=== PATIENT | female | born 1980 | race African-American/Black ===

== ENCOUNTER 2017-05-27 14:52 | Emergency (ER) | payer SELFPAY ==
--- NOTE | 2017-05-27 15:14 | EDM.PDOC ---
[id number] IRREGULAR HEARTBEAT Time Seen by Provider: 05/27/17 14:59 Source of Information: Reports: Patient History Limitations: Reports: No Limitations - History of Present Illness INITIAL COMMENTS - FREE TEXT/NARRATIVE: History of present illness: []Patient's had dental pain for 5 days and went to the dentist this morning he was unable to see her in the office. She also notes that 3 days ago she started having "slowing" of her pulse felt like palpitations. On questioning she denies palpitations being irregular or fast. Patient states that she has had blood transfusions in the past for a low hemoglobin and feels the same now. She states she has not had her blood checked a long time and does not follow up with a primary care doctor. Patient states since her last transfusion she has been doing well until early this year when her menses became irregular again. He can have up to 3 menses in one month. She denies any dizziness, lightheadedness, shortness of breath or chest pain Review of systems: As per history of present illness and below otherwise all systems reviewed and negative. Past medical history: As per history of present illness and as reviewed below otherwise noncontributory. Surgical history: As per history of present illness and as reviewed below otherwise noncontributory. Social history: No reported history of drug or alcohol abuse. Family history: As per history of present illness and as reviewed below otherwise noncontributory. Physical exam: General: Well developed, well nourished in NAD HEENT: Atraumatic, normocephalic, pupils reactive, negative for conjunctival pallor or scleral icterus, mucous membranes moist, throat clear, neck supple, nontender, trachea midline. Lungs: Clear to auscultation, breath sounds equal bilaterally, chest nontender. Heart: S1S2, regular, negative for clicks, rubs, or JVD. Abdomen: Soft, nondistended, nontender. Negative for masses or hepatosplenomegaly. Negative for costovertebral tenderness. Pelvis: Stable nontender. Genitourinary: Deferred. Rectal: Deferred. Extremities: Atraumatic, negative for cords or calf pain. Neurovascular unremarkable. Neuro: Awake, alert, oriented. Cranial nerves II through XII unremarkable. Cerebellum unremarkable. Motor and sensory unremarkable throughout. Exam nonfocal. Diagnostics: []CBC chemistry checked showing anemia Therapeutics: []Dr. Aguilar was notified as he was in the ED seeing another patient and he see her in clinic. Impression: []Dental pain, iron deficiency anemia hemoglobin of 7.3 Plan: []Take iron supplements daily, follow-up with Dr. Aguilar Definitive disposition and diagnosis as appropriate pending reevaluation and review of above. Teeth Pain Score (Numeric/FACES): 9 - Related Data Allergies Allergy/AdvReac Type Severity Reaction Status Date / Time No Known Allergies Allergy Verified 05/27/17 14:55 Home Meds: Home Meds . [No Known Home Meds] 05/27/17 [History] Past Medical History - Past Health History Medical/Surgical History: Denies Medical/Surgical History Cardiovascular History: Reports: None Respiratory History: Reports: None Gastrointestinal History: Reports: None Genitourinary History: Reports: None HEALTH CARE COORDINATOR History: Reports: None Musculoskeletal History: Reports: None Neurological History: Reports: None Psychiatric History: Reports: None Endocrine/Metabolic History: Reports: None Hematologic History: Reports: None Immunologic History: Reports: None Oncologic (Cancer) History: Reports: None Dermatologic History: Reports: None - Infectious Disease History Infectious Disease History: Reports: None - Past Surgical History Head Surgeries/Procedures: Reports: None Respiratory Surgical History: Reports: None GI Surgical History: Reports: None Female Surgical History: Reports: None Social & Family History - Tobacco Use Smoking Status *Q: Never Smoker Second Hand Smoke Exposure: No - Caffeine Use Caffeine Use: Reports: None - Alcohol Use Days Per Week of Alcohol Use: 0 - Recreational Drug Use Recreational Drug Use: No ED ROS GENERAL - Review of Systems Review Of Systems: See Below (See history of present illness) ED EXAM, GENERAL - Physical Exam Exam: See Below (See history of present illness) Course - Vital Signs Last Recorded V/S: Last Vital Signs Temp 36.4 C 05/27/17 14:59 Pulse 89 05/27/17 14:59 Resp 12 05/27/17 14:59 BP 117/71 05/27/17 14:59 Pulse Ox 98 05/27/17 14:59 - Orders/Labs/Meds Orders: Active Orders 24 hr Category Date Time Status TYPE AND SCREEN [BBK] Stat Lab 05/27/17 15:34 Received Labs: Laboratory Tests 08/14/17 08/14/17 Range/Units 15:34 15:34 WBC 6.95 (4.0-11.0) K/uL RBC 4.56 (4.30-5.90) M/uL Hgb 7.3 L (12.0-16.0) g/dL Hct 26.4 L (36.0-46.0) % MCV 57.9 L (80.0-98.0) fL MCH 16.0 L (27.0-32.0) pg MCHC 27.7 L (31.0-37.0) g/dL RDW Std Deviation 45.4 (28.0-62.0) fl RDW Coeff of Román 22 H (11.0-15.0) % Plt Count 388 (150-400) K/uL MPV 9.10 (7.40-12.00) fL Neut % (Auto) 61.2 (48.0-80.0) % Lymph % (Auto) 27.6 (16.0-40.0) % [place] % (Auto) 8.9 (0.0-15.0) % Eos % (Auto) 1.0 (0.0-7.0) % Baso % (Auto) 1.3 (0.0-1.5) % Neut # (Auto) 4.3 (1.4-5.7) K/uL Lymph # (Auto) 1.9 (0.6-2.4) K/uL [place] # (Auto) 0.6 (0.0-0.8) K/uL Eos # (Auto) 0.1 (0.0-0.7) K/uL Baso # (Auto) 0.1 (0.0-0.1) K/uL Nucleated RBC % 0.0 /100WBC Nucleated RBCs # 0 K/uL Sodium 138 (136-146) mmol/L Potassium 4.0 (3.5-5.1) mmol/L Chloride 108 (98-110) mmol/L Carbon Dioxide 24 (21-31) mmol/L BUN 10 (6.0-23.0) mg/dL Creatinine 0.7 (0.6-1.5) mg/dL Est Cr Clr Drug Dosing 108.04 mL/min Estimated GFR (MDRD) > 60.0 ml/min Glucose 86 (60-110) mg/dL Calcium 8.9 (8.8-10.8) mg/dL Meds: Medications Discontinued Medications Generic Name Dose Route Start Last Admin Trade Name Manuel PRN Reason Stop Dose Admin Benzocaine 2 each 05/27/17 16:21 05/27/17 16:31 Hurricaine One 20% MUCMEM 05/27/17 16:22 2 each ONETIME ONE Administration Lidocaine HCl 15 ml 05/27/17 16:21 05/27/17 16:31 Xylocaine 2% Viscous PO 05/27/17 16:22 15 ml ONETIME ONE Administration Departure - Departure Time of Disposition: 16:31 Disposition: Home, Self-Care 01 Condition: Good Clinical Impression: Pain, dental Iron deficiency anemia Qualifiers: Iron deficiency anemia type: chronic blood loss Qualified Code(s): D50.0 - Iron deficiency anemia secondary to blood loss (chronic) - Discharge Information Instructions: Dental Caries, [id number] Referrals: PCP,None [Primary Care Provider] - Forms: ED Department Discharge Additional Instructions: The following information is given to patients seen in the emergency department who are being discharged to home. This information is to outline your options for follow-up care. We provide all patients seen in our emergency department with a follow-up referral. The need for follow-up, as well as the timing and circumstances, are variable depending upon the specifics of your emergency department visit. If you don't have a primary care physician on staff, we will provide you with a referral. We always advise you to contact your personal physician following an emergency department visit to inform them of the circumstance of the visit and for follow-up with them and/or the need for any referrals to a consulting specialist. The emergency department will also refer you to a specialist when appropriate. This referral assures that you have the opportunity for follow-up care with a specialist. All of these measure are taken in an effort to provide you with optimal care, which includes your follow-up. Under all circumstances we always encourage you to contact your private physician who remains a resource for coordinating your care. When calling for follow-up care, please make the office aware that this follow-up is from your recent emergency room visit. If for any reason you are refused follow-up, please contact the [facility] Emergency Department at and asked to speak to the emergency department charge nurse. Take iron supplements daily. Follow-up with HEALTH CARE COORDINATOR [facility] [address] [place] [id number] - My Orders Last 24 Hours: My Active Orders 05/27/17 15:34 TYPE AND SCREEN [BBK] Stat - Assessment/Plan Last 24 Hours: My Active Orders 05/27/17 15:34 TYPE AND SCREEN [BBK] Stat
[2017-05-27 16:07] LABS: CHLORIDE,CL 108 mmol/L (98-110); SODIUM,NA 138 mmol/L (136-146)
[2017-05-27] MEDS ORDERED: Benzocaine 20% Topical Spray UD MUCMEM ONE (16:21)
[2017-05-27] MEDS ORDERED: Lidocaine 2% Viscous Solution 15 ML Cup PO ONE (16:21)
[2017-05-27 18:37] VITALS: BP 110/72
== END 2017-05-27 16:39 | disposition home or self-care (01) ==
LOC: MW.ED 14:52
DX: D50.0 Iron deficiency anemia secondary to blood loss (chronic) (principal); K08.89 Other specified disorders of teeth and supporting structures
CPT/HCPCS: 36415; 80048; 85025; 86850; 86900; 86901; 99283; A9270

== ENCOUNTER 2018-02-07 13:49 | Observation (INO) | payer SELFPAY ==
[2018-02-07] MEDS ORDERED: Sodium Chloride 0.9% 10 ML Syringe FLUSH PRN ×2 (13:57→15:19)
[2018-02-07] MEDS ORDERED: Sodium Chloride 0.9% 2.5 ML Syringe FLUSH PRN ×2 (13:57→15:19)
--- NOTE | 2018-02-07 14:05 | EDM.PDOC ---
ED HPI GENERAL MEDICAL PROBLEM - General Chief Complaint: Chest Pain Stated Complaint: CHEST PAIN Time Seen by Provider: 02/07/18 14:01 Source of Information: Reports: Patient History Limitations: Reports: No Limitations - History of Present Illness INITIAL COMMENTS - FREE TEXT/NARRATIVE: HISTORY AND PHYSICAL: [] 37-year-old female presenting with chest pain Pain started in her back and has wrapped around to the anterior chest History of Present Illness: []Patient is doing well now pain has been present for at least 4 hours History 8 months ago with dysfunctional bleeding or palpitations no longer having any uterine bleeding problems. Patient was advised to see Dr. Aguilar for follow-up and did not follow up in the clinic Denies being Since last period was one month ago and was normal Patient denies having any blood in her stool or abnormal stools no black or tarry stools have been noted Review of Systems: As per history of present illness and below otherwise all systems reviewed and negative. Past medical history: As per history of present illness and as reviewed below otherwise noncontributory. Surgical history: As per history of present illness and as reviewed below otherwise noncontributory. Social history: No reported history of drug or alcohol abuse. Family history: As per history of present illness and as reviewed below otherwise noncontributory. Physical exam: Alert and oriented female answering questions appropriately in full sentences without shortness of breath. Skin is warm and dry intact. HEENT: Atraumatic, normocehpalic, pupils reactive, negative for conjunctival pallor or scleral icterus, mucous membranes moist, throat clear, neck supple, nontender, trachea midline. Pitosis of rightupper lid. Lungs: Clear to auscultation, breath sounds equal bilaterally, chest non tender. Heart: S1S2, regular, negative for clicks, rubs, or JVD. Abdomen: Soft, nondistended, tender on palpation right upper quadrant, patient grabbing my hand and pulling it away. Negative for masses or hepatossplenmegaly. Negative for costovertebral tenderness. Pelvis: Stable nontender. Genitourinary: Deferred. Rectal: Deferred Extremities: Atraumatic, negative for cords or calf pain. Neurovascular unremarkable. Neuro: Awake, alert, oriented. Cranial nerves II through XII unremarkable. Cerebellum unremarkable. Motor and sensory unremarkable throughout. Exam nonfocal. orthostatic measure showed laying pressure of 145/67 with heart rate of 81 when sitting blood pressure dropped to 124/58 with a heart rate of 88. Patient complained of chest pain when sitting up. negligible changes noted when sitting to standing. Hemoccult was negative. History patient with Dr. Negrete who is agreeable for observation on telemetry Diagnostics: []CBC CMP UA amylase lipase H. pylori troponin EKG chest x-ray Orthostatic blood pressures, no cold Therapeutics: []iv saline Impression: []Symptomatic anemia Heart palpitations Intermittent chest pain Plan: []observation with telemetry Definitive disposition and diagnosis as appropriate pending reevaluation and review of above. Onset: Today, Sudden Duration: Hour(s): (4-5) Location: Reports: Chest, Back Quality: Reports: Ache Severity: Moderate Improves with: Reports: None Worsens with: Reports: None Associated Symptoms: Reports: Chest Pain, Other (palpitations intermittently) Upper Mid-Sternal Back Pain Score (Numeric/FACES): 9 - Related Data Allergies Allergy/AdvReac Type Severity Reaction Status Date / Time No Known Allergies Allergy Verified 02/07/18 13:57 Home Meds: Home Meds . [No Known Home Meds] 05/27/17 [History] Past Medical History - Past Health History Medical/Surgical History: Denies Medical/Surgical History Cardiovascular History: Reports: None Respiratory History: Reports: None Gastrointestinal History: Reports: None Genitourinary History: Reports: None STARCH DUMPER History: Reports: None Musculoskeletal History: Reports: None Neurological History: Reports: None Psychiatric History: Reports: None Endocrine/Metabolic History: Reports: None Hematologic History: Reports: None Immunologic History: Reports: None Oncologic (Cancer) History: Reports: None Dermatologic History: Reports: None - Infectious Disease History Infectious Disease History: Reports: Chicken Pox - Past Surgical History Head Surgeries/Procedures: Reports: None Respiratory Surgical History: Reports: None GI Surgical History: Reports: None Female Surgical History: Reports: None Social & Family History - Family History Family Medical History: Noncontributory - Tobacco Use Smoking Status *Q: Never Smoker Second Hand Smoke Exposure: No - Caffeine Use Caffeine Use: Reports: None - Alcohol Use Days Per Week of Alcohol Use: 0 - Recreational Drug Use Recreational Drug Use: No ED ROS GENERAL - Review of Systems Review Of Systems: ROS reveals no pertinent complaints other than HPI. ED EXAM, GENERAL - Physical Exam Exam: See Below (see dictation) EKG INTERPRETATION EKG Date: 02/07/18 Rhythm: NSR Comparison: No Change (2015) Course - Vital Signs Last Recorded V/S: Last Vital Signs Temp 36.7 C 02/07/18 13:54 Pulse 80 02/07/18 16:30 Resp 16 02/07/18 16:30 BP 109/49 L 02/07/18 16:30 Pulse Ox 100 02/07/18 16:30 Orthostatic Blood Pressure [ 122/69 Standing] Orthostatic Blood Pressure [ 124/58 Sitting] Orthostatic Blood Pressure [ 145/67 Supine] - Orders/Labs/Meds Orders: Active Orders 24 hr Category Date Time Status EKG Documentation Completion [RC] STAT Care 02/07/18 13:57 Active Hemoccult [Fecal Occult Blood Collection] [RC] Care 02/07/18 15:47 Active ASDIRECTED Orthostatic Vital Signs [RC] ASDIRECTED Care 02/07/18 14:55 Active CULTURE URINE [RM] Stat Lab 02/07/18 14:10 Received Hemoccult [OCCULT BLOOD DIAGNOSTIC] [OP] Stat Lab 02/07/18 14:55 Ordered UA W/MICROSCOPIC [URIN] Stat Lab 02/07/18 13:57 Ordered Sodium Chloride 0.9% [Saline Flush] Med 02/07/18 13:57 Active 10 ml FLUSH ASDIRECTED PRN Sodium Chloride 0.9% [Saline Flush] Med 02/07/18 15:19 Active 10 ml FLUSH ASDIRECTED PRN Sodium Chloride 0.9% [Saline Flush] Med 02/07/18 13:57 Active 2.5 ml FLUSH ASDIRECTED PRN Sodium Chloride 0.9% [Saline Flush] Med 02/07/18 15:19 Active 2.5 ml FLUSH ASDIRECTED PRN Saline Lock Insert [OM.PC] Stat Oth 02/07/18 13:57 Ordered Saline Lock Insert [OM.PC] Stat Ot 02/07/18 15:19 Ordered Medication Orders Sodium Chloride (Saline Flush) 10 ml FLUSH ASDIRECTED PRN PRN Reason: Keep Vein Open Sodium Chloride (Saline Flush) 2.5 ml FLUSH ASDIRECTED PRN PRN Reason: Keep Vein Open Sodium Chloride (Saline Flush) 10 ml FLUSH ASDIRECTED PRN PRN Reason: Keep Vein Open Sodium Chloride (Saline Flush) 2.5 ml FLUSH ASDIRECTED PRN PRN Reason: Keep Vein Open Labs: Laboratory Tests 02/07/18 02/07/18 02/07/18 Range/Units 14:10 14:10 14:10 WBC 9.29 (4.0-11.0) K/uL RBC 4.37 (4.30-5.90) M/uL Hgb 6.7 L (12.0-16.0) g/dL Hct 24.4 L (36.0-46.0) % MCV 55.8 L (80.0-98.0) fL MCH 15.3 L (27.0-32.0) pg MCHC 27.5 L (31.0-37.0) g/dL RDW Std Deviation 43.8 (28.0-62.0) fl RDW Coeff of Román 22 H (11.0-15.0) % Plt Count 401 H (150-400) K/uL Neut % (Auto) 68.3 (48.0-80.0) % Lymph % (Auto) 23.5 (16.0-40.0) % [place] % (Auto) 6.8 (0.0-15.0) % Eos % (Auto) 0.6 (0.0-7.0) % Baso % (Auto) 0.8 (0.0-1.5) % Neut # (Auto) 6.4 H (1.4-5.7) K/uL Lymph # (Auto) 2.2 (0.6-2.4) K/uL [place] # (Auto) 0.6 (0.0-0.8) K/uL Eos # (Auto) 0.1 (0.0-0.7) K/uL Baso # (Auto) 0.1 (0.0-0.1) K/uL Nucleated RBC % 0.0 /100WBC Nucleated RBCs # 0 K/uL Sodium 139 (136-145) mmol/L Potassium 3.9 (3.5-5.1) mmol/L Chloride 107 (98-107) mmol/L Carbon Dioxide 23.0 (21.0-32.0) mmol/L BUN 9 (7.0-18.0) mg/dL Creatinine 0.6 (0.6-1.0) mg/dL Est Cr Clr Drug Dosing 138.82 mL/min Estimated GFR (MDRD) > 60.0 ml/min Glucose 94 (74-106) mg/dL Calcium 9.0 (8.5-10.1) mg/dL Total Bilirubin 0.3 (0.2-1.0) mg/dL AST 10 L (15-37) IU/L ALT 11 L (14-63) IU/L Alkaline Phosphatase 97 (46-116) U/L Troponin I < 0.050 (0.000-0.056) ng/mL Total Protein 7.5 (6.4-8.2) g/dL Albumin 3.5 (3.4-5.0) g/dL Globulin 4.0 H (2.0-3.5) g/dL Albumin/Globulin Ratio 0.9 L (1.3-2.8) Amylase 52 (25-115) U/L Lipase 98 (73-393) U/L HCG, Quant < 1.0 mIU/mL H. pylori IgG Antibody POSITIVE H (NEG) Blood Type Antibody Screen 02/07/18 Range/Units 15:31 WBC (4.0-11.0) K/uL RBC (4.30-5.90) M/uL Hgb (12.0-16.0) g/dL Hct (36.0-46.0) % MCV (80.0-98.0) fL MCH (27.0-32.0) pg MCHC (31.0-37.0) g/dL RDW Std Deviation (28.0-62.0) fl RDW Coeff of Román (11.0-15.0) % Plt Count (150-400) K/uL Neut % (Auto) (48.0-80.0) % Lymph % (Auto) (16.0-40.0) % [place] % (Auto) (0.0-15.0) % Eos % (Auto) (0.0-7.0) % Baso % (Auto) (0.0-1.5) % Neut # (Auto) (1.4-5.7) K/uL Lymph # (Auto) (0.6-2.4) K/uL [place] # (Auto) (0.0-0.8) K/uL Eos # (Auto) (0.0-0.7) K/uL Baso # (Auto) (0.0-0.1) K/uL Nucleated RBC % /100WBC Nucleated RBCs # K/uL Sodium (136-145) mmol/L Potassium (3.5-5.1) mmol/L Chloride (98-107) mmol/L Carbon Dioxide (21.0-32.0) mmol/L BUN (7.0-18.0) mg/dL Creatinine (0.6-1.0) mg/dL Est Cr Clr Drug Dosing mL/min Estimated GFR (MDRD) ml/min Glucose (74-106) mg/dL Calcium (8.5-10.1) mg/dL Total Bilirubin (0.2-1.0) mg/dL AST (15-37) IU/L ALT (14-63) IU/L Alkaline Phosphatase (46-116) U/L Troponin I (0.000-0.056) ng/mL Total Protein (6.4-8.2) g/dL Albumin (3.4-5.0) g/dL Globulin (2.0-3.5) g/dL Albumin/Globulin Ratio (1.3-2.8) Amylase (25-115) U/L Lipase (73-393) U/L HCG, Quant mIU/mL H. pylori IgG Antibody (NEG) Blood Type O POSITIVE Antibody Screen NEGATIVE Meds: Medications Generic Name Dose Route Start Last Admin Trade Name Freq PRN Reason Stop Dose Admin Sodium Chloride 10 ml 02/07/18 13:57 Saline Flush FLUSH ASDIRECTED PRN Keep Vein Open Sodium Chloride 2.5 ml 02/07/18 13:57 Saline Flush FLUSH ASDIRECTED PRN Keep Vein Open Sodium Chloride 10 ml 02/07/18 15:19 Saline Flush FLUSH ASDIRECTED PRN Keep Vein Open Sodium Chloride 2.5 ml 02/07/18 15:19 Saline Flush FLUSH ASDIRECTED PRN Keep Vein Open Discontinued Medications Generic Name Dose Route Start Last Admin Trade Name Freq PRN Reason Stop Dose Admin Sodium Chloride 1,000 mls @ 999 mls/hr 02/07/18 15:19 02/07/18 15:59 Normal Saline IV 02/07/18 16:19 999 mls/hr STAT ONE Administration Pantoprazole Sodium 80 mg 02/07/18 15:19 02/07/18 16:01 Protonix Iv IVPUSH 02/07/18 15:20 80 mg .BOLUS ONE Administration Departure - Departure Time of Disposition: 16:53 Disposition: Refer to Observation Condition: Good Clinical Impression: Anemia Qualifiers: Anemia type: unspecified type Qualified Code(s): D64.9 - Anemia, unspecified Instructions: Anemia, Nonspecific Chest Pain, [id number] Referrals: PCP,None [Primary Care Provider] - Forms: ED Department Discharge - My Orders Last 24 Hours: My Active Orders 02/07/18 13:57 EKG Documentation Completion [RC] STAT UA W/MICROSCOPIC [URIN] Stat Sodium Chloride 0.9% [Saline Flush] 10 ml FLUSH ASDIRECTED PRN Sodium Chloride 0.9% [Saline Flush] 2.5 ml FLUSH ASDIRECTED PRN Saline Lock Insert [OM.PC] Stat 02/07/18 14:10 CULTURE URINE [RM] Stat 02/07/18 14:55 Hemoccult [OCCULT BLOOD DIAGNOSTIC] [OP] Stat 02/07/18 15:19 Sodium Chloride 0.9% [Saline Flush] 10 ml FLUSH ASDIRECTED PRN Sodium Chloride 0.9% [Saline Flush] 2.5 ml FLUSH ASDIRECTED PRN Saline Lock Insert [OM.PC] Stat 02/07/18 15:47 Hemoccult [Fecal Occult Blood Collection] [RC] ASDIRECTED - Assessment/Plan Last 24 Hours: My Active Orders 02/07/18 13:57 EKG Documentation Completion [RC] STAT UA W/MICROSCOPIC [URIN] Stat Sodium Chloride 0.9% [Saline Flush] 10 ml FLUSH ASDIRECTED PRN Sodium Chloride 0.9% [Saline Flush] 2.5 ml FLUSH ASDIRECTED PRN Saline Lock Insert [OM.PC] Stat 02/07/18 14:10 CULTURE URINE [RM] Stat 02/07/18 14:55 Hemoccult [OCCULT BLOOD DIAGNOSTIC] [OP] Stat 02/07/18 15:19 Sodium Chloride 0.9% [Saline Flush] 10 ml FLUSH ASDIRECTED PRN Sodium Chloride 0.9% [Saline Flush] 2.5 ml FLUSH ASDIRECTED PRN Saline Lock Insert [OM.PC] Stat 02/07/18 15:47 Hemoccult [Fecal Occult Blood Collection] [RC] ASDIRECTED
--- NOTE | 2018-02-07 14:42 | CR ---
EXAMINATION: Portable chest radiograph. HISTORY: Chest pain. FINDINGS: The trachea is midline. The cardiomediastinal silhouette is within normal limits. No pulmonary infilt rates, effusions or pneumothorax. Osseous structures appear unremarkable. IMPRESSION: No acute cardiopulmonary process.
[2018-02-07 14:55] LABS: CHLORIDE,CL 107 mmol/L (98-107); SODIUM,NA 139 mmol/L (136-145)
[2018-02-07] MEDS ORDERED: Pantoprazole 40 MG Vial IVPUSH ONE (15:19)
[2018-02-07] MEDS ORDERED: Sodium Chloride 0.9% 1,000 ML IV ONE (15:19)
[2018-02-07] MEDS ORDERED: Albuterol/Ipratropium 3.0-0.5 MG/3 ML Neb Soln NEB PRN (17:36)
[2018-02-07] MEDS ORDERED: Ondansetron 4 MG/2 ML SDV IVPUSH PRN (17:36)
--- NOTE | 2018-02-07 17:51 | PCM.HP ---
H&P History of Present Illness - General Date of Service: 02/07/18 Admit Problem/Dx: Admission Diagnosis/Problem Admission Diagnosis/Problem Anemia Source of Information: Patient History Limitations: Reports: No Limitations - History of Present Illness Initial Comments - Free Text/Narative: 37-year-old female is being admitted with symptomatic anemia and chest pain. Patient presented to the ER today after the onset of chest pain that began in the back and wrapped around to the front of the chest. Pain was located substernal and in the epigastric area. Patient has no cardiac history. There is no family history of cardiac disease. Patient denies any diaphoresis, nausea, vomiting with the onset of chest pain. While in the ER she was found to have a hemoglobin of 6.7. She notes that she has had blood transfusions in the past for iron deficiency anemia. She has been seen in the past in our ER for dysfunctional bleeding and was told to follow-up with the [facility] but she never did. She denies . She denies any bloody stools, bloody urine or gastric ulcers. Her last menstrual period was one month ago and was normal. Patient is a poor historian but in reviewing her past records, she had a pelvic ultrasound done in 2014 which showed a right-sided hemorrhagic cyst of the ovary. She never followed up after this finding. She is also told his issues in the ER in the past that she can have up to 3 periods in one month. While visiting with the patient in the ER she states that she feels much better since presenting and currently denies any chest pain, palpitations, shortness of breath, wheezing, cough, abdominal pain, nausea, vomiting, constipation, diarrhea, dysuria, hematuria, peripheral edema, numbness/tingling/weakness in the upper and lower extremity bilaterally, fever. ER course: CBC showed a normal white blood cell count but a hemoglobin of 6.7. Platelets were elevated at 401. CMP was unremarkable as well as the initial troponin. Amylase and lipase were unremarkable. H. pylori was positive. EKG showed normal sinus rhythm and was consistent with prior EKGs done in the ER in past. She was given IV Protonix and IV fluid bolus. Her blood pressure at the time that I saw her was 109/49. Orthostatic vital signs do show orthostatic hypotension. Upper Mid-Sternal Back Pain Score (Numeric/FACES): 9 - Related Data Allergies/Adverse Reactions: Allergies Allergy/AdvReac Type Severity Reaction Status Date / Time No Known Allergies Allergy Verified 02/07/18 13:57 Home Medications: Home Meds . [No Known Home Meds] 05/27/17 [History] Past Medical History - Past Health History Medical/Surgical History: Denies Medical/Surgical History Cardiovascular History: Reports: None Respiratory History: Reports: None Gastrointestinal History: Reports: None Genitourinary History: Reports: None [facility] History: Reports: None Musculoskeletal History: Reports: None Neurological History: Reports: None Psychiatric History: Reports: None Endocrine/Metabolic History: Reports: None Hematologic History: Reports: None Immunologic History: Reports: None Oncologic (Cancer) History: Reports: None Dermatologic History: Reports: None - Infectious Disease History Infectious Disease History: Reports: Chicken Pox - Past Surgical History Head Surgeries/Procedures: Reports: None Respiratory Surgical History: Reports: None GI Surgical History: Reports: None Female Surgical History: Reports: None Social & Family History - Family History Family Medical History: Noncontributory - Tobacco Use Smoking Status *Q: Never Smoker Second Hand Smoke Exposure: No - Caffeine Use Caffeine Use: Reports: None - Alcohol Use Days Per Week of Alcohol Use: 0 - Recreational Drug Use Recreational Drug Use: No H&P Review of Systems - Review of Systems: Review Of Systems: See Below General: Reports: No Symptoms HEENT: Reports: No Symptoms Pulmonary: Reports: No Symptoms Cardiovascular: Reports: Chest Pain, Palpitations Gastrointestinal: Reports: No Symptoms Genitourinary: Reports: No Symptoms Musculoskeletal: Reports: No Symptoms Skin: Reports: No Symptoms Psychiatric: Reports: No Symptoms Neurological: Reports: No Symptoms Hematologic/Lymphatic: Reports: Anemia Immunologic: Reports: No Symptoms Exam - Exam Exam: See Below - Vital Signs Vital Signs: Last Vital Signs Temp 98.0 F 02/07/18 13:54 Pulse 78 02/07/18 17:38 Resp 18 02/07/18 17:38 BP 129/67 02/07/18 17:38 Pulse Ox 100 02/07/18 17:38 Orthostatic Blood Pressure [ 122/69 Standing] Orthostatic Blood Pressure [ 124/58 Sitting] Orthostatic Blood Pressure [ 145/67 Supine] Weight: 185 lb 3.013 oz - Exam General: Alert, Oriented, Cooperative HEENT: Conjunctiva Clear, EOMI, Hearing Intact, Mucosa Moist & [place], Posterior Pharynx Clear, TMs Clear Neck: Supple, Trachea Midline, 2 Lungs: Clear to Auscultation, Normal Respiratory Effort Cardiovascular: Regular Rate, Regular Rhythm GI/Abdominal Exam: Normal Bowel Sounds, Soft, Non-Tender, No Organomegaly, No Distention, No Abnormal Bruit, No Mass, Pelvis Stable Back Exam: Normal Inspection, Full Range of Motion, NT Extremities: Normal Inspection, Normal Range of Motion, Non-Tender, No Pedal Edema, Normal Capillary Refill Peripheral Pulses: 2+: Radial (L), Radial (R), Posterior Tibial (L), Posterior Tibial (R) Skin: Warm, Dry, Intact Neuro Extensive - Mental Status: Alert, Oriented x3, Normal Mood/Affect, Normal Cognition Psychiatric: Alert, Normal Affect, Normal Mood - Patient Data Lab Results Last 24 hrs: Laboratory Results - last 24 hr 02/07/18 02/07/18 02/07/18 Range/Units 14:10 14:10 14:10 WBC 9.29 (4.0-11.0) K/uL RBC 4.37 (4.30-5.90) M/uL Hgb 6.7 L (12.0-16.0) g/dL Hct 24.4 L (36.0-46.0) % MCV 55.8 L (80.0-98.0) fL MCH 15.3 L (27.0-32.0) pg MCHC 27.5 L (31.0-37.0) g/dL RDW Std Deviation 43.8 (28.0-62.0) fl RDW Coeff of Román 22 H (11.0-15.0) % Plt Count 401 H (150-400) K/uL Neut % (Auto) 68.3 (48.0-80.0) % Lymph % (Auto) 23.5 (16.0-40.0) % [place] % (Auto) 6.8 (0.0-15.0) % Eos % (Auto) 0.6 (0.0-7.0) % Baso % (Auto) 0.8 (0.0-1.5) % Neut # (Auto) 6.4 H (1.4-5.7) K/uL Lymph # (Auto) 2.2 (0.6-2.4) K/uL [place] # (Auto) 0.6 (0.0-0.8) K/uL Eos # (Auto) 0.1 (0.0-0.7) K/uL Baso # (Auto) 0.1 (0.0-0.1) K/uL Nucleated RBC % 0.0 /100WBC Nucleated RBCs # 0 K/uL Sodium 139 (136-145) mmol/L Potassium 3.9 (3.5-5.1) mmol/L Chloride 107 (98-107) mmol/L Carbon Dioxide 23.0 (21.0-32.0) mmol/L BUN 9 (7.0-18.0) mg/dL Creatinine 0.6 (0.6-1.0) mg/dL Est Cr Clr Drug Dosing 138.82 mL/min Estimated GFR (MDRD) > 60.0 ml/min Glucose 94 (74-106) mg/dL Calcium 9.0 (8.5-10.1) mg/dL Total Bilirubin 0.3 (0.2-1.0) mg/dL AST 10 L (15-37) IU/L ALT 11 L (14-63) IU/L Alkaline Phosphatase 97 (46-116) U/L Troponin I < 0.050 (0.000-0.056) ng/mL Total Protein 7.5 (6.4-8.2) g/dL Albumin 3.5 (3.4-5.0) g/dL Globulin 4.0 H (2.0-3.5) g/dL Albumin/Globulin Ratio 0.9 L (1.3-2.8) Amylase 52 (25-115) U/L Lipase 98 (73-393) U/L HCG, Quant < 1.0 mIU/mL H. pylori IgG Antibody POSITIVE H (NEG) Blood Type Antibody Screen Crossmatch 02/07/18 Range/Units 15:31 WBC (4.0-11.0) K/uL RBC (4.30-5.90) M/uL Hgb (12.0-16.0) g/dL Hct (36.0-46.0) % MCV (80.0-98.0) fL MCH (27.0-32.0) pg MCHC (31.0-37.0) g/dL RDW Std Deviation (28.0-62.0) fl RDW Coeff of Román (11.0-15.0) % Plt Count (150-400) K/uL Neut % (Auto) (48.0-80.0) % Lymph % (Auto) (16.0-40.0) % [place] % (Auto) (0.0-15.0) % Eos % (Auto) (0.0-7.0) % Baso % (Auto) (0.0-1.5) % Neut # (Auto) (1.4-5.7) K/uL Lymph # (Auto) (0.6-2.4) K/uL [place] # (Auto) (0.0-0.8) K/uL Eos # (Auto) (0.0-0.7) K/uL Baso # (Auto) (0.0-0.1) K/uL Nucleated RBC % /100WBC Nucleated RBCs # K/uL Sodium (136-145) mmol/L Potassium (3.5-5.1) mmol/L Chloride (98-107) mmol/L Carbon Dioxide (21.0-32.0) mmol/L BUN (7.0-18.0) mg/dL Creatinine (0.6-1.0) mg/dL Est Cr Clr Drug Dosing mL/min Estimated GFR (MDRD) ml/min Glucose (74-106) mg/dL Calcium (8.5-10.1) mg/dL Total Bilirubin (0.2-1.0) mg/dL AST (15-37) IU/L ALT (14-63) IU/L Alkaline Phosphatase (46-116) U/L Troponin I (0.000-0.056) ng/mL Total Protein (6.4-8.2) g/dL Albumin (3.4-5.0) g/dL Globulin (2.0-3.5) g/dL Albumin/Globulin Ratio (1.3-2.8) Amylase (25-115) U/L Lipase (73-393) U/L HCG, Quant mIU/mL H. pylori IgG Antibody (NEG) Blood Type O POSITIVE Antibody Screen NEGATIVE Crossmatch See Detail Result Diagrams: 02/07/18 14:10 02/07/18 14:10 - Problem List (1) Chest pain SNOMED Code(s): 47277790 ICD Code: R07.9 - CHEST PAIN, UNSPECIFIED Status: Acute Current Visit: Yes (2) H. pylori infection SNOMED Code(s): 786813957 ICD Code: A04.8 - OTHER SPECIFIED BACTERIAL INTESTINAL INFECTIONS Status: Acute Current Visit: Yes (3) Anemia SNOMED Code(s): 569533528 ICD Code: D64.9 - ANEMIA, UNSPECIFIED Status: Acute Current Visit: Yes Qualifiers: Anemia type: unspecified type Qualified Code(s): D64.9 - Anemia, unspecified Problem List Initiated/Reviewed/Updated: Yes Orders Last 24hrs: Active Orders 24 hr Category Date Time Status Patient Status [ADT] Stat ADT 02/07/18 16:51 Active Cardiac Monitoring [RC] . DIRECTED Care 02/07/18 17:41 Active Cardiac Monitoring [RC] CONTINUOUS Care 02/07/18 17:37 Active EKG Documentation Completion [RC] STAT Care 02/07/18 13:57 Active Height and Weight [RC] DAILY Care 02/07/18 17:36 Active Hemoccult [Fecal Occult Blood Collection] [RC] Care 02/07/18 15:47 Active ASDIRECTED Intake and Output [RC] QSHIFT Care 02/07/18 17:36 Active Notify Provider Vital Signs [RC] ASDIRECTED Care 02/07/18 17:37 Active Orthostatic Vital Signs [RC] ASDIRECTED Care 02/07/18 14:55 Active Oxygen Therapy [RC] PRN Care 02/07/18 17:36 Active Pulse Oximetry [RC] PRN Care 02/07/18 17:36 Active RT Aerosol Therapy [RC] ASDIRECTED Care 02/07/18 17:38 Active Up With Assistance [RC] ASDIRECTED Care 02/07/18 17:36 Active VTE/DVT Education [RC] PER UNIT ROUTINE Care 02/07/18 17:36 Active Vital Signs [RC] Q4H Care 02/07/18 17:36 Active BASIC METABOLIC PANEL,BMP [CHEM] AM Lab 02/08/18 05:11 Ordered CBC WITH AUTO DIFF [HEME] AM Lab 02/08/18 05:11 Ordered CULTURE URINE [RM] Stat Lab 02/07/18 17:11 Received FERRITIN [CHEM] Routine Lab 02/07/18 17:40 Ordered HEMOGLOBIN/HEMATOCRIT,HH [HEME] Routine Lab 02/07/18 17:45 Ordered Hemoccult [OCCULT BLOOD DIAGNOSTIC] [OP] Stat Lab 02/07/18 14:55 Ordered IRON/TIBC [CHEM] Routine Lab 02/07/18 17:40 Ordered MAGNESIUM [CHEM] Routine Lab 02/07/18 17:36 Ordered PHOSPHORUS [CHEM] Routine Lab 02/07/18 17:36 Ordered RED BLOOD CELLS LP [BBK] Routine Lab 02/07/18 15:31 Results TYPE AND SCREEN [BBK] Stat Lab 02/07/18 15:31 Results UA W/MICROSCOPIC [URIN] Stat Lab 02/07/18 17:11 Ordered Acetaminophen [Tylenol] Med 02/07/18 17:36 Active 650 mg PO Q4H PRN Albuterol/Ipratropium [DuoNeb 3.0-0.5 MG/3 ML] Med 02/07/18 17:36 Active 3 ml NEB Q4HRRT PRN Amoxicillin [Amoxil] Med 02/07/18 21:00 Active 1,000 mg PO Q12HR Clarithromycin [Biaxin] Med 02/07/18 17:45 Active 500 mg PO BID Ondansetron [Zofran] Med 02/07/18 17:36 Active 4 mg IVPUSH Q4H PRN Pantoprazole [ProTONIX] Med 02/07/18 17:43 Ordered 40 mg PO BIDAC Sodium Chloride 0.9% [Saline Flush] Med 02/07/18 13:57 Active 10 ml FLUSH ASDIRECTED PRN Sodium Chloride 0.9% [Saline Flush] Med 02/07/18 15:19 Active 10 ml FLUSH ASDIRECTED PRN Sodium Chloride 0.9% [Saline Flush] Med 02/07/18 13:57 Active 2.5 ml FLUSH ASDIRECTED PRN Sodium Chloride 0.9% [Saline Flush] Med 02/07/18 15:19 Active 2.5 ml FLUSH ASDIRECTED PRN Saline Lock Insert [OM.PC] Stat Oth 02/07/18 13:57 Ordered Saline Lock Insert [OM.PC] Stat Oth 02/07/18 15:19 Ordered Sequential Compression Device [OM.PC] Per Unit Routine Oth 02/07/18 17:37 Ordered Transfuse Red Blood Cells [COMM] Routine Oth 02/07/18 17:41 Ordered Resuscitation Status Routine Resus Stat 02/07/18 17:36 Ordered Medication Orders Acetaminophen (Tylenol) 650 mg PO Q4H PRN PRN Reason: Pain (Mild 1-3)/fever Albuterol/Ipratropium (Duoneb 3.0-0.5 Mg/3 Ml) 3 ml NEB Q4HRRT PRN PRN Reason: Shortness Of Breath/wheezing Amoxicillin (Amoxil) 1,000 mg PO Q12HR MAGGIE Clarithromycin (Biaxin) 500 mg PO BID MAGGIE Ondansetron HCl (Zofran) 4 mg IVPUSH Q4H PRN PRN Reason: Nausea Pantoprazole Sodium (Protonix) 40 mg PO BIDAC MAGGIE Sodium Chloride (Saline Flush) 10 ml FLUSH ASDIRECTED PRN PRN Reason: Keep Vein Open Sodium Chloride (Saline Flush) 2.5 ml FLUSH ASDIRECTED PRN PRN Reason: Keep Vein Open Sodium Chloride (Saline Flush) 10 ml FLUSH ASDIRECTED PRN PRN Reason: Keep Vein Open Sodium Chloride (Saline Flush) 2.5 ml FLUSH ASDIRECTED PRN PRN Reason: Keep Vein Open Assessment/Plan Comment:: 37-year-old female that is being admitted with symptomatic anemia and chest pain. #1. Symptomatic anemia: -Hemoglobin of 6.7 on admission. Patient will receive 2 units of packed red blood cells with an H&H being checked 1 hour after transfusion. Recheck CBC in the morning. -Iron studies are pending. -Hemoccult is pending. If positive we will consult surgery for possible endoscopy and colonoscopy. -We'll start the patient on daily iron tomorrow. #2. Chest pain with palpitations: -Patient will be put on telemetry. EKG was normal in the ER. -We will trend troponins -Magnesium and phosphorus are pending. #3. H. pylori infection: -This could be contributing to the patient's anemia. -Patient will be started on clarithromycin 500 mg by mouth twice a day, amoxicillin 1 g twice a day and Protonix 40 mg twice a day. #4. Orthostatic hypotension: -Hopefully this will improve as the patient received a blood transfusion. DVT prophylaxis: SCDs. Disposition: 1-2 days pending improvement.
[2018-02-07] MEDS: Pantoprazole 40 MG Tab.CR PO SCH (18:17)
[2018-02-07] MEDS: Acetaminophen 325 MG Tab PO PRN (19:39)
[2018-02-07] MEDS: Amoxicillin 500 MG Cap PO SCH (21:36)
[2018-02-08 06:38] LABS: CHLORIDE,CL 108 mmol/L (98-107); SODIUM,NA 139 mmol/L (136-145)
[2018-02-08] MEDS: Pantoprazole 40 MG Tab.CR PO SCH (08:00)
[2018-02-08 08:01] VITALS: BP 110/64
[2018-02-08] MEDS: Amoxicillin 500 MG Cap PO SCH (09:00)
[2018-02-08] MEDS: Acetaminophen 325 MG Tab PO PRN (09:07)
== END 2018-02-08 12:15 | disposition home or self-care (01) ==
LOC: MW.ED 13:49 → MW.MS 17:23
PROVIDERS: ADMIT Internal Medicine; ATTEND Internal Medicine
DX: D64.9 Anemia, unspecified (principal); R07.2 Precordial pain; A04.8 Other specified bacterial intestinal infections; I95.1 Orthostatic hypotension
CPT/HCPCS: 36415; 36430; 71045; 80048; 80053; 81001; 82150; 82272; 82728; 83550; 83690; 83735; 84100; 84484; 84702; 85025; 86677; 86850; 86900; 86901; 86920; 86921; 86922; 87086; 93005; 96361; 96374; 99285; A9270; C9113; J7040; P9016

== ENCOUNTER 2019-02-26 14:08 | Emergency (ER) | payer SELFPAY ==
--- NOTE | 2019-02-26 14:22 | EDM.PDOC ---
ED HPI GENERAL MEDICAL PROBLEM - General Chief Complaint: ARMATURE COIL WINDER Problem Stated Complaint: STOMACH PAIN Time Seen by Provider: 02/26/19 14:16 Source of Information: Reports: Patient History Limitations: Reports: No Limitations - History of Present Illness INITIAL COMMENTS - FREE TEXT/NARRATIVE: HISTORY AND PHYSICAL: History of present illness: Patient is a 38-year-old female who presents to the emergency room with complaints of left lower abdominal pain started last evening. She states that she did have some scant vaginal bleeding which started this morning. She believes she is , as she has been trying to conceive. Last menstrual period was December 2018, unsure definite date. Did take a positive test at home. 1, para 0. Patient denies any fever, chills, headache, change in vision, syncope or near syncope. Denies any chest pain, back pain, shortness of breath or cough. Denies any abdominal pain, nausea, vomiting, diarrhea, constipation or dysuria. Has not noted any blood in urine or stool. Patient has been eating and drinking appropriately. PMH: Iron deficiency anemia Review of systems: As per history of present illness and below otherwise all systems reviewed and negative. Past medical history: As per history of present illness and as reviewed below otherwise noncontributory. Surgical history: As per history of present illness and as reviewed below otherwise noncontributory. Social history: See social history for further information Family history: As per history of present illness and as reviewed below otherwise noncontributory. Physical exam: General: Well-developed and well-nourished 30 H her old female. Alert and oriented. Nontoxic appearing and in no acute distress. HEENT: Atraumatic, normocephalic, pupils equal and reactive bilaterally, negative for conjunctival pallor or scleral icterus, mucous membranes moist, TMs normal bilaterally, throat clear, neck supple, nontender, trachea midline. No drooling or trismus noted. No meningeal signs. No hot potato voice noted. Lungs: Clear to auscultation, breath sounds equal bilaterally, chest nontender. Heart: S1S2, regular rate and rhythm without overt murmur Abdomen: Soft, nondistended, nonspecific low abdominal tenderness. Negative for masses or hepatosplenomegaly. Negative for costovertebral tenderness. Pelvis: Stable nontender. Genitourinary: This was done with consent and a skein dyer at the bedside. External genitalia appears within normal limits. Cervical os is closed with no bleeding or discharge noted. Patient tolerated exam well. Bimanual was tolerated fair. Rectal: Deferred. Skin: Intact, warm, dry. No lesions or rashes noted. Extremities: Atraumatic, moves all extremities per self without difficulty or deficits, negative for cords or calf pain. Neurovascular unremarkable. Neuro: Awake, alert, oriented. Cranial nerves II through XII unremarkable. Cerebellum unremarkable. Motor and sensory unremarkable throughout. Exam nonfocal. Notes: Patient's lab work is unremarkable. Ultrasound shows a single live IUP gestational age of 7 weeks and 4 days. Quantitative hCG is 106,739. She states she does plan on following up with Dr. Sinha. Encouraged her to call and set up a follow-up appointment to establish care. Supportive care measures were reviewed and discussed. Voices understanding and is agreeable to plan of care. Denies any further questions or concerns at this time. Diagnostics: CBC, CMP, UA, HCGU, Quant HCG, AB/RH, Transvag US Therapeutics: None Prescription: Keflex 500mg BID x 10 days Impression: UTI Threatened miscarriage first trimester Plan: 1. Pelvic rest until cleared by your ARMATURE COIL WINDER. 2. Please start a vitamin once daily. 3. You may use Tylenol as directed and as needed for pain management. This is safe in . 4. Please call Dr. Aguilar's office to establish care and received care as we discussed. 5. Return to the ED as needed and as discussed. Definitive disposition and diagnosis as appropriate pending reevaluation and review of above. Left Lower Abdominal Pain Score (Numeric/FACES): 6 - Related Data Allergies Allergy/AdvReac Type Severity Reaction Status Date / Time No Known Allergies Allergy Verified 02/26/19 14:20 Home Meds: Home Meds . [No Known Home Meds] 02/26/19 [History] Past Medical History - Past Health History Medical/Surgical History: Denies Medical/Surgical History Cardiovascular History: Reports: None Respiratory History: Reports: None Gastrointestinal History: Reports: None Genitourinary History: Reports: None ARMATURE COIL WINDER History: Reports: None Other ARMATURE COIL WINDER History: 2015, right sided hemorrhagic cyst Musculoskeletal History: Reports: None Neurological History: Reports: None Psychiatric History: Reports: None Endocrine/Metabolic History: Reports: None Hematologic History: Reports: None Immunologic History: Reports: None Oncologic (Cancer) History: Reports: None Dermatologic History: Reports: None - Infectious Disease History Infectious Disease History: Reports: Chicken Pox - Past Surgical History Head Surgeries/Procedures: Reports: None Respiratory Surgical History: Reports: None GI Surgical History: Reports: None Female Surgical History: Reports: None Social & Family History - Family History Family Medical History: Noncontributory Other Immunologic Family History: hx of family anemia - Caffeine Use Caffeine Use: Reports: None ED ROS GENERAL - Review of Systems Review Of Systems: ROS reveals no pertinent complaints other than HPI. ED EXAM - Physical Exam Exam: See Below (See dictation) Course - Vital Signs Last Recorded V/S: Last Vital Signs Temp 96.9 F 02/26/19 14:20 Pulse 100 02/26/19 14:20 Resp 16 02/26/19 14:20 BP 118/80 02/26/19 14:20 Pulse Ox 100 02/26/19 14:20 - Orders/Labs/Meds Labs: Laboratory Tests 02/26/19 02/26/19 02/26/19 Range/Units 14:30 14:30 14:30 WBC 11.42 H (4.0-11.0) K/uL RBC 5.30 (4.30-5.90) M/uL Hgb 11.1 L (12.0-16.0) g/dL Hct 35.9 L (36.0-46.0) % MCV 67.7 L (80.0-98.0) fL MCH 20.9 L (27.0-32.0) pg MCHC 30.9 L (31.0-37.0) g/dL RDW Std Deviation 49.0 (28.0-62.0) fl RDW Coeff of Román 20 H (11.0-15.0) % Plt Count 379 (150-400) K/uL MPV 9.80 (7.40-12.00) fL Neut % (Auto) 73.1 (48.0-80.0) % Lymph % (Auto) 17.6 (16.0-40.0) % [place] % (Auto) 7.7 (0.0-15.0) % Eos % (Auto) 1.2 (0.0-7.0) % Baso % (Auto) 0.4 (0.0-1.5) % Neut # (Auto) 8.3 H (1.4-5.7) K/uL Lymph # (Auto) 2.0 (0.6-2.4) K/uL [place] # (Auto) 0.9 H (0.0-0.8) K/uL Eos # (Auto) 0.1 (0.0-0.7) K/uL Baso # (Auto) 0.1 (0.0-0.1) K/uL Nucleated RBC % 0.0 /100WBC Nucleated RBCs # 0 K/uL Sodium 137 (136-145) mmol/L Potassium 3.8 (3.5-5.1) mmol/L Chloride 102 (98-107) mmol/L Carbon Dioxide 21.4 (21.0-32.0) mmol/L BUN 6 L (7.0-18.0) mg/dL Creatinine 0.6 (0.6-1.0) mg/dL Est Cr Clr Drug Dosing 123.63 mL/min Estimated GFR (MDRD) > 60.0 ml/min Glucose 121 H (74-106) mg/dL Calcium 9.4 (8.5-10.1) mg/dL Total Bilirubin 0.3 (0.2-1.0) mg/dL AST 11 L (15-37) IU/L ALT 11 L (14-63) IU/L Alkaline Phosphatase 87 (46-116) U/L Total Protein 8.0 (6.4-8.2) g/dL Albumin 3.6 (3.4-5.0) g/dL Globulin 4.4 H (2.6-4.0) g/dL Albumin/Globulin Ratio 0.8 L (0.9-1.6) HCG, Quant 829282.0 mIU/mL Urine Color Urine Appearance Urine pH (5.0-8.0) Ur Specific [place] (1.001-1.035) Urine Protein (NEGATIVE) mg/dL Urine Glucose (UA) (NEGATIVE) mg/dL Urine Ketones (NEGATIVE) mg/dL Urine Occult Blood (NEGATIVE) Urine Nitrite (NEGATIVE) Urine Bilirubin (NEGATIVE) Urine Ictotest Urine Urobilinogen (<2.0) EU/dL Ur Leukocyte Esterase (NEGATIVE) Urine RBC (0-2/HPF) Urine WBC (0-5/HPF) Ur Epithelial Cells (NONE-FEW) Urine Bacteria (NEGATIVE) Urine HCG, Qual (NEGATIVE) Blood Type 02/26/19 02/26/19 02/26/19 Range/Units 14:30 14:33 14:33 WBC (4.0-11.0) K/uL RBC (4.30-5.90) M/uL Hgb (12.0-16.0) g/dL Hct (36.0-46.0) % MCV (80.0-98.0) fL MCH (27.0-32.0) pg MCHC (31.0-37.0) g/dL RDW Std Deviation (28.0-62.0) fl RDW Coeff of Román (11.0-15.0) % Plt Count (150-400) K/uL MPV (7.40-12.00) fL Neut % (Auto) (48.0-80.0) % Lymph % (Auto) (16.0-40.0) % [place] % (Auto) (0.0-15.0) % Eos % (Auto) (0.0-7.0) % Baso % (Auto) (0.0-1.5) % Neut # (Auto) (1.4-5.7) K/uL Lymph # (Auto) (0.6-2.4) K/uL [place] # (Auto) (0.0-0.8) K/uL Eos # (Auto) (0.0-0.7) K/uL Baso # (Auto) (0.0-0.1) K/uL Nucleated RBC % /100WBC Nucleated RBCs # K/uL Sodium (136-145) mmol/L Potassium (3.5-5.1) mmol/L Chloride (98-107) mmol/L Carbon Dioxide (21.0-32.0) mmol/L BUN (7.0-18.0) mg/dL Creatinine (0.6-1.0) mg/dL Est Cr Clr Drug Dosing mL/min Estimated GFR (MDRD) ml/min Glucose (74-106) mg/dL Calcium (8.5-10.1) mg/dL Total Bilirubin (0.2-1.0) mg/dL AST (15-37) IU/L ALT (14-63) IU/L Alkaline Phosphatase (46-116) U/L Total Protein (6.4-8.2) g/dL Albumin (3.4-5.0) g/dL Globulin (2.6-4.0) g/dL Albumin/Globulin Ratio (0.9-1.6) HCG, Quant mIU/mL Urine Color YELLOW Urine Appearance CLOUDY Urine pH 6.5 (5.0-8.0) Ur Specific [place] 1.020 (1.001-1.035) Urine Protein 30 H (NEGATIVE) mg/dL Urine Glucose (UA) NEGATIVE (NEGATIVE) mg/dL Urine Ketones TRACE H (NEGATIVE) mg/dL Urine Occult Blood LARGE H (NEGATIVE) Urine Nitrite NEGATIVE (NEGATIVE) Urine Bilirubin SMALL H (NEGATIVE) Urine Ictotest NEGATIVE Urine Urobilinogen 0.2 (<2.0) EU/dL Ur Leukocyte Esterase NEGATIVE (NEGATIVE) Urine RBC 6-10 (0-2/HPF) Urine WBC 2-5 (0-5/HPF) Ur Epithelial Cells MANY (NONE-FEW) Urine Bacteria 2+ H (NEGATIVE) Urine HCG, Qual POSITIVE (NEGATIVE) Blood Type O POSITIVE Departure - Departure Time of Disposition: 15:54 Disposition: Home, Self-Care 01 Clinical Impression: Threatened miscarriage in early UTI (urinary tract infection) during Qualifiers: Trimester: first trimester Qualified Code(s): O23.41 - Unspecified infection of urinary tract in , first trimester - Discharge Information Instructions: Urinary Tract Infection, Adult, [id number], Threatened Miscarriage, [id number] Referrals: Devendra Aguilar MD [Primary Care Provider] - Forms: ED Department Discharge Additional Instructions: The following information is given to patients seen in the emergency department who are being discharged to home. This information is to outline your options for follow-up care. We provide all patients seen in our emergency department with a follow-up referral. The need for follow-up, as well as the timing and circumstances, are variable depending upon the specifics of your emergency department visit. If you don't have a primary care physician on staff, we will provide you with a referral. We always advise you to contact your personal physician following an emergency department visit to inform them of the circumstance of the visit and for follow-up with them and/or the need for any referrals to a consulting specialist. The emergency department will also refer you to a specialist when appropriate. This referral assures that you have the opportunity for follow-up care with a specialist. All of these measure are taken in an effort to provide you with optimal care, which includes your follow-up. Under all circumstances we always encourage you to contact your private physician who remains a resource for coordinating your care. When calling for follow-up care, please make the office aware that this follow-up is from your recent emergency room visit. If for any reason you are refused follow-up, please contact the [facility] Emergency Department at and asked to speak to the emergency department charge nurse. [facility] [address] [place] [id number] [place] [address] 1. Pelvic rest until cleared by your ARMATURE COIL WINDER. 2. Please start a vitamin once daily. 3. You may use Tylenol as directed and as needed for pain management. This is safe in . 4. Please call Dr. Aguilar's office to establish care and received care as we discussed. 5. Return to the ED as needed and as discussed.
[2019-02-26 15:01] LABS: CHLORIDE,CL 102 mmol/L (98-107); SODIUM,NA 137 mmol/L (136-145)
--- NOTE | 2019-02-26 15:49 | US ---
EXAMINATION: Transvaginal obstetric ultrasound HISTORY: Pain COMPARISON: CT dated 03/30/2016 TECHNIQUE: Grayscale, color Doppler, spectral Doppler imaging obtained transvaginally. FINDINGS: There is a single intrauterine gestational sac noted with a pole and yolk sac. Cardiac activity is noted with a heart rate of 165 bpm. No evidence of a significant subchorionic hemorrhage. The mean sac diameter measures 2.6 cm and the crown-rump length measures 1.1 cm. This gives an estimated gestational age at 7 weeks and 4 days and estimated date of delivery at 10/11/2019. Ovaries appear unremarkable. IMPRESSION: 1. Single live intrauterine with an estimated gestational age at 7 weeks and 4 days.
[2019-02-26 16:52] VITALS: BP 119/84
== END 2019-02-26 16:10 | disposition home or self-care (01) ==
LOC: MW.ED 14:08
DX: O20.0 Threatened abortion (principal); O23.41 Unspecified infection of urinary tract in pregnancy, first trimester; Z3A.01 Less than 8 weeks gestation of pregnancy
CPT/HCPCS: 36415; 76817; 76817-26; 80053; 81001; 81025; 84702; 85025; 86900; 86901; 99284-25

== ENCOUNTER 2019-10-08 05:31 | Inpatient (IN) | payer OTHER ==
[2019-10-08] MEDS ORDERED: Terbutaline 1 MG/ML SDV SUBCUT PRN (05:39)
[2019-10-08] MEDS ORDERED: Butorphanol 1 MG/ML SDV IVPUSH PRN (05:39)
[2019-10-08] MEDS ORDERED: Nalbuphine 10 MG/1 ML Vial IVPUSH PRN ×2 (05:39→20:29)
[2019-10-08] MEDS ORDERED: Ondansetron 4 MG/2 ML SDV IVPUSH PRN ×3 (05:39→20:46)
[2019-10-08] MEDS ORDERED: Methylergonovine 0.2 MG/1 ML Amp IM PRN ×2 (05:39→20:46)
[2019-10-08] MEDS ORDERED: Misoprostol 200 MCG Tab PO PRN (05:39)
[2019-10-08] MEDS ORDERED: Tranexamic Acid 1,000 MG in Sodium Chloride 0.9% 100 ML IV PRN ×2 (05:39→20:46)
[2019-10-08] MEDS ORDERED: Misoprostol 25 MCG (1/4 of 100 MCG) Tab PO PRN ×2 (05:39)
[2019-10-08] MEDS ORDERED: Water For Irrigation,Sterile 1,000 ML Container IRR PRN (05:39)
[2019-10-08] MEDS ORDERED: Sodium Chloride 0.9% 10 ML Syringe FLUSH PRN (05:39)
[2019-10-08] MEDS ORDERED: Carboprost Tromethamine 250 MCG/1 ML Amp IM PRN (05:39)
[2019-10-08] MEDS ORDERED: Misoprostol 25 MCG (1/4 of 100 MCG) Tab VAG PRN ×2 (05:39)
[2019-10-08] MEDS ORDERED: Lidocaine 1% 50 ML MDV INJECT PRN (05:39)
[2019-10-08] MEDS ORDERED: Sodium Chloride 0.9% 2.5 ML Syringe FLUSH PRN (05:39)
[2019-10-08] MEDS ORDERED: Sodium Chloride 0.9% 10 ML SDV IV PRN ×2 (05:39→18:15)
[2019-10-08] MEDS ORDERED: Lactated Ringers 1,000 ML IV SCH ×3 (05:45→21:00)
[2019-10-08] MEDS ORDERED: Oxytocin/0.9 % Sodium Chloride 30 UNIT/500 ML BAG IV SCH ×3 (05:45→18:15)
--- NOTE | 2019-10-08 07:34 | PCM.SN ---
- Free Text/Narrative Note: Pt here for induction for AMA, pt with history of anemia and 2018 admission for symptomatic anemia (chest pain/dizziness) at 6.7 in 2018. Nursing notified, 2 units of PRBC cross match ordered to have available.
[2019-10-08] MEDS ORDERED: Morphine 4 MG/ML Syringe IVPUSH ONE (16:35)
[2019-10-08] MEDS ORDERED: Morphine PF 10 MG/10 ML SDV ONE (18:09)
[2019-10-08] MEDS ORDERED: Oxytocin 10 Units/1 ML SDV ONE (18:09)
[2019-10-08] MEDS ORDERED: ceFAZolin/Dextrose,Iso-Osmotic 2 GM/50 ML Duplex Bag IV ONE (18:10)
[2019-10-08] MEDS ORDERED: Octyl 2-Cyanoacrylate 1 Tube ONE (18:14)
[2019-10-08] MEDS ORDERED: Citric Acid/Sodium Citrate Solution 30 ML Cup PO ONE (18:15)
[2019-10-08] MEDS ORDERED: Propofol 200 MG/20 ML SDV ONE (18:54)
[2019-10-08] MEDS ORDERED: fentaNYL 250 MCG/5 ML SDV ONE (18:55)
[2019-10-08] MEDS ORDERED: Methylergonovine 0.2 MG/1 ML Amp ONE (19:23)
[2019-10-08] MEDS ORDERED: Naloxone 0.4 MG/ML Syringe IVPUSH PRN (20:29)
[2019-10-08] MEDS ORDERED: Acetaminophen/oxyCODONE 325-5 MG Tab PO PRN (20:29)
[2019-10-08] MEDS ORDERED: fentaNYL 100 MCG/2 ML SDV IVPUSH PRN (20:29)
[2019-10-08] MEDS ORDERED: diphenhydrAMINE 50 MG/ML SDV IVPUSH PRN ×2 (20:29→20:46)
--- NOTE | 2019-10-08 20:32 | PCM.PREANE ---
Preanesthetic Assessment - Anesthesia/Transfusion/Family Hx Anesthesia History: No Prior Anesthesia Family History of Anesthesia Reaction: No Transfusion History: Prior Transfusion Without Reaction Intubation History: Unknown - Review of Systems General: No Symptoms Pulmonary: No Symptoms Cardiovascular: No Symptoms Gastrointestinal: Abdominal Pain (laabor pain) Neurological: No Symptoms Other: Reports: None - Physical Assessment Height: 5 ft 9 in Weight: 95 kg ASA Class: 2E Mental Status: Alert & Oriented x3 Airway Class: Mallampati = 1 Thyro-Mental Finger Breadths: 3 Mouth Opening Finger Breadths: 3 ROM/Head Extension: Full Lungs: Clear to Auscultation, Normal Respiratory Effort Cardiovascular: Regular Rate, Regular Rhythm - Lab Values: Laboratory Last Values WBC 13.85 K/uL (4.0-11.0) H 10/08/19 06:15 RBC 4.88 M/uL (4.30-5.90) 10/08/19 06:15 Hgb 9.1 g/dL (12.0-16.0) L 10/08/19 06:15 Hct 31.4 % (36.0-46.0) L 10/08/19 06:15 MCV 64.3 fL (80.0-98.0) L 10/08/19 06:15 MCH 18.6 pg (27.0-32.0) L 10/08/19 06:15 MCHC 29.0 g/dL (31.0-37.0) L 10/08/19 06:15 RDW Std Deviation 46.7 fl (28.0-62.0) 10/08/19 06:15 RDW Coeff of Román 20 % (11.0-15.0) H 10/08/19 06:15 Plt Count 314 K/uL (150-400) 10/08/19 06:15 MPV 9.70 fL (7.40-12.00) 10/08/19 06:15 Nucleated RBC % 0.6 /100WBC 10/08/19 06:15 Nucleated RBCs # 0 K/uL 10/08/19 06:15 Blood Type O POSITIVE 10/08/19 06:15 Antibody Screen NEGATIVE 10/08/19 06:15 Crossmatch See Detail 10/08/19 06:15 - Allergies Allergies/Adverse Reactions: Allergies Allergy/AdvReac Type Severity Reaction Status Date / Time No Known Allergies Allergy Verified 02/26/19 14:20 - Blood Blood Available: No - Anesthesia Plan Pre-Op Medication Ordered: None - Acknowledgements Anesthesia Type Planned: Spinal Pt an Appropriate Candidate for the Planned Anesthesia: Yes Alternatives and Risks of Anesthesia Discussed w Pt/Guardian: Yes Pt/Guardian Understands and Agrees with Anesthesia Plan: Yes PreAnesthesia Questionnaire - Past Health History Medical/Surgical History: Denies Medical/Surgical History HEENT History: Reports: None Cardiovascular History: Reports: None Respiratory History: Reports: None Gastrointestinal History: Reports: None Genitourinary History: Reports: None CORE LOADER History: Reports: Other OB/BYN History: 2015, right sided hemorrhagic cyst Musculoskeletal History: Reports: None Neurological History: Reports: None Psychiatric History: Reports: None Endocrine/Metabolic History: Reports: None Hematologic History: Reports: None Immunologic History: Reports: None Oncologic (Cancer) History: Reports: None Dermatologic History: Reports: None - Infectious Disease History Infectious Disease History: Reports: Chicken Pox - Past Surgical History Head Surgeries/Procedures: Reports: None Respiratory Surgical History: Reports: None GI Surgical History: Reports: None Female Surgical History: Reports: None - SUBSTANCE USE Smoking Status *Q: Never Smoker Second Hand Smoke Exposure: No Recreational Drug Use History: No - HOME MEDS Home Medications: Home Meds . [No Known Home Meds] 02/26/19 [History] - CURRENT (IN HOUSE) MEDS Current Meds: Current Medications Butorphanol Tartrate (Stadol) 1 mg IVPUSH Q1H PRN PRN Reason: Pain Carboprost Tromethamine (Hemabate Ds) 250 mcg IM ASDIRECTED PRN PRN Reason: Post Hemorrhage Lactated Ringer's (Ringers, Lactated) 1,000 mls @ 150 mls/hr IV ASDIRECTED MAGGIE Last Infusion: 10/08/19 14:00 Dose: Infused Oxytocin/Sodium Chloride (Oxytocin 30 Unit/500 Ml-Ns) 30 unit in 500 mls @ 2 mls/hr IV TITRATE MAGGIE; Protocol Oxytocin/Sodium Chloride (Oxytocin 30 Unit/500 Ml-Ns) 30 unit in 500 mls @ 555 mls/hr IV TITRATE MAGGIE Tranexamic Acid 1,000 mg/ (Sodium Chloride) 110 mls @ 660 mls/hr IV ONETIME PRN PRN Reason: Bleeding Oxytocin/Sodium Chloride (Oxytocin 30 Unit/500 Ml-Ns) 30 unit in 500 mls @ 250 mls/hr IV TITRATE MAGGIE Lactated Ringer's (Ringers, Lactated) 1,000 mls @ 500 mls/hr IV BOLUS MAGGIE Lidocaine HCl (Xylocaine 1%) 50 ml INJECT ONETIME PRN PRN Reason: Laceration repair Methylergonovine Maleate (Methergine) 0.2 mg IM ASDIRECTED PRN PRN Reason: Post Hemorrhage Misoprostol (Cytotec) 25 mcg VAG ONETIME PRN PRN Reason: Cervical Ripening Last Admin: 10/08/19 07:23 Dose: 25 mcg Misoprostol (Cytotec) 25 mcg VAG Q4H PRN PRN Reason: Cervical Ripening Misoprostol (Cytotec) 200 mcg PO ONETIME PRN PRN Reason: Post Hemorrhage Misoprostol (Cytotec) 25 mcg PO ONETIME PRN PRN Reason: Cervical Ripening Last Admin: 10/08/19 08:48 Dose: 25 mcg Misoprostol (Cytotec) 25 mcg PO Q4H PRN PRN Reason: Cervical Ripening Nalbuphine HCl (Nubain) 10 mg IVPUSH Q1H PRN PRN Reason: Pain (severe 7-10) Ondansetron HCl (Zofran) 4 mg IVPUSH Q4H PRN PRN Reason: Nausea/Vomiting Sodium Chloride (Saline Flush) 10 ml FLUSH ASDIRECTED PRN PRN Reason: Keep Vein Open Sodium Chloride (Saline Flush) 2.5 ml FLUSH ASDIRECTED PRN PRN Reason: Keep Vein Open Sodium Chloride (Normal Saline) 10 ml IV ASDIRECTED PRN PRN Reason: IV Use Sodium Chloride (Normal Saline) 10 ml IV ASDIRECTED PRN PRN Reason: IV Use Sterile Water (Sterile Water For Irrigation) 1,000 ml IRR ASDIRECTED PRN PRN Reason: delivery Terbutaline Sulfate (Brethine) 0.25 mg SUBCUT ASDIRECTED PRN PRN Reason: Tacysystole Discontinued Medications Cefazolin Sodium/Dextrose (Ancef) Confirm Administered Dose 2 gm IV .STK-MED ONE Stop: 10/08/19 18:11 Citric Acid/Sodium Citrate (Bicitra Solution) 30 ml PO ONETIME ONE Stop: 10/08/19 18:16 Fentanyl (Sublimaze) Confirm Administered Dose 250 mcg .ROUTE .STK-MED ONE Stop: 10/08/19 18:56 Methylergonovine Maleate (Methergine) Confirm Administered Dose 0.2 mg .ROUTE .STK-MED ONE Stop: 10/08/19 19:24 Morphine Sulfate (Morphine) 4 mg IVPUSH ONETIME ONE Stop: 10/08/19 16:36 Last Admin: 10/08/19 16:49 Dose: 4 mg Morphine Sulfate (Duramorph Pf) Confirm Administered Dose 10 mg .ROUTE .STK-MED ONE Stop: 10/08/19 18:10 Octyl Cyanoacrylate (Dermabond Advance) Confirm Administered Dose 1 applic .ROUTE .STK-MED ONE Stop: 10/08/19 18:15 Oxytocin (Pitocin) Confirm Administered Dose 10 unit .ROUTE .STK-MED ONE Stop: 10/08/19 18:10 Propofol (Diprivan 20 Ml) Confirm Administered Dose 200 mg .ROUTE .STK-MED ONE Stop: 10/08/19 18:55
[2019-10-08] MEDS ORDERED: Bisacodyl 10 MG Supp RECTAL PRN (20:46)
[2019-10-08] MEDS ORDERED: Lanolin 100% Cream 7 GM Tube TOP PRN (20:46)
[2019-10-08] MEDS ORDERED: Oxytocin 10 Units/1 ML SDV IM PRN (20:46)
[2019-10-08] MEDS ORDERED: Misoprostol 200 MCG Tab RECTAL PRN (20:46)
--- NOTE | 2019-10-08 20:54 | PCM.OPNOTE ---
- General Post-Op/Procedure Note Date of Surgery/Procedure: 10/08/19 Operative Procedure(s): Primary lower transverse Findings: Live female delivered at 712pm , 8/8 , weight 2740g Pre Op Diagnosis: 39yo @ 39w4d. Cat 2 FHT remote from delivery Post-Op Diagnosis: same Anesthesia Technique: Spinal Primary Surgeon: Duncan Dan Materials Handler: Caterina Pantoja Pathology: Placenta Fluid Replacement, Intraop: 3,000 Output, Urine Amount: 200 EBL in mLs: 800 Complications: None Condition: Good Free Text/Narrative:: Intake & Output 10/08/19 10/08/19 10/08/19 06:59 14:59 22:59 Output Total 200 Balance -200
[2019-10-08] MEDS ORDERED: Oxytocin/Lactated Ringers 30 UNIT/500 ML BAG IV SCH (21:00)
--- NOTE | 2019-10-08 21:23 | PCM.POSTAN ---
POST ANESTHESIA ASSESSMENT - MENTAL STATUS Mental Status: Alert, Oriented - VITAL SIGNS Vital Signs: Last Vital Signs Temp 36.2 C 10/08/19 20:16 Pulse 54 L 10/08/19 21:01 Resp 12 10/08/19 21:01 BP 108/49 L 10/08/19 21:01 Pulse Ox 99 10/08/19 21:01 - RESPIRATORY Respiratory Status: Respiratory Rate WNL, Airway Patent, O2 Saturation Stable - CARDIOVASCULAR CV Status: Pulse Rate WNL, Blood Pressure Stable - GASTROINTESTINAL GI Status: No Symptoms - PAIN Pain Score: 4 - POST OP HYDRATION Hydration Status: Adequate & Stable - OBSERVATIONS Free Text/Narrative:: no anesthesia problems
[2019-10-08] MEDS: Ketorolac 30 MG/ML SDV IVPUSH SCH (21:33)
[2019-10-09] MEDS: Ketorolac 30 MG/ML SDV IVPUSH SCH ×5 (03:33→22:07)
--- NOTE | 2019-10-09 09:08 | PCM.PNPP ---
- General Info Date of Service: 10/09/19 Subjective Update: 39yo P1 s/p Primary for Cat 2FHT remote from delivery She denies any complains She is , normal lochia H/H 7.04/08 , from , VSS - wnl , She is not ambulating yet , will get out of bed to have a shower this morning U/O 675ml/8hrs Functional Status: Reports: Pain Controlled, Tolerating Diet, Ambulating - Review of Systems General: Reports: No Symptoms HEENT: Reports: No Symptoms Pulmonary: Reports: No Symptoms Cardiovascular: Reports: No Symptoms Gastrointestinal: Reports: No Symptoms Genitourinary: Reports: No Symptoms Musculoskeletal: Reports: No Symptoms Skin: Reports: No Symptoms Neurological: Reports: No Symptoms Psychiatric: Reports: No Symptoms - General Info Date of Service: 10/09/19 - Patient Data Vital Signs - Most Recent: Last Vital Signs Temp 36.9 C 10/09/19 05:16 Pulse 80 10/09/19 07:34 Resp 18 10/09/19 07:34 BP 106/59 L 10/09/19 04:47 Pulse Ox 99 10/09/19 07:34 Weight - Most Recent: 95 kg I&O - Last 24 Hours: Intake & Output 10/08/19 10/09/19 10/09/19 22:59 06:59 14:59 Intake Total 6100 477 Output Total 950 675 Balance 5150 -198 Lab Results - Last 24 Hours: Laboratory Results - last 24 hr 10/09/19 Range/Units 06:15 Hgb 7.6 L (12.0-16.0) g/dL Hct 26.6 L (36.0-46.0) % Med Orders - Current: Current Medications Bisacodyl (Dulcolax) 10 mg RECTAL ONETIME PRN PRN Reason: Constipation Butorphanol Tartrate (Stadol) 1 mg IVPUSH Q1H PRN PRN Reason: Pain Carboprost Tromethamine (Hemabate Ds) 250 mcg IM ASDIRECTED PRN PRN Reason: Post Hemorrhage Diphenhydramine HCl (Benadryl) 25 mg IVPUSH Q4H PRN PRN Reason: Itching Stop: 10/09/19 20:29 Last Admin: 12/26/19 23:54 Dose: 25 mg Diphenhydramine HCl (Benadryl) 25 mg IVPUSH Q6H PRN PRN Reason: Itching or Nausea Docusate Sodium (Colace) 100 mg PO BID [facility] Emollient Ointment (Lansinoh Hpa) 0 gm TOP ASDIRECTED PRN PRN Reason: Sore Nipples Fentanyl (Sublimaze) 50 mcg IVPUSH Q1H PRN PRN Reason: Pain (severe 7-10) Lactated Ringer's (Ringers, Lactated) 1,000 mls @ 150 mls/hr IV ASDIRECTED [facility] Last Infusion: 10/08/19 14:00 Dose: Infused Oxytocin/Sodium Chloride (Oxytocin 30 Unit/500 Ml-Ns) 30 unit in 500 mls @ 2 mls/hr IV TITRATE [facility]; Protocol Oxytocin/Sodium Chloride (Oxytocin 30 Unit/500 Ml-Ns) 30 unit in 500 mls @ 555 mls/hr IV TITRATE [facility] Tranexamic Acid 1,000 mg/ (Sodium Chloride) 110 mls @ 660 mls/hr IV ONETIME PRN PRN Reason: Bleeding Oxytocin/Sodium Chloride (Oxytocin 30 Unit/500 Ml-Ns) 30 unit in 500 mls @ 250 mls/hr IV TITRATE [facility] Lactated Ringer's (Ringers, Lactated) 1,000 mls @ 500 mls/hr IV BOLUS [facility] Tranexamic Acid 1,000 mg/ (Sodium Chloride) 110 mls @ 660 mls/hr IV ONETIME PRN PRN Reason: Bleeding Lactated Ringer's (Ringers, Lactated) 1,000 mls @ 125 mls/hr IV ASDIRECTED [facility] Last Admin: 10/08/19 23:54 Dose: 125 mls/hr Oxytocin/Lactated Ringer's (Pitocin In Lr 30 Units/500 Ml) 30 unit in 500 mls @ 125 mls/hr IV TITRATE [facility]; Protocol Ibuprofen (Motrin) 800 mg PO Q8H PRN PRN Reason: mild pain or fever Ketorolac Tromethamine (Toradol) 30 mg IVPUSH Q6H [facility] Stop: 10/09/19 21:01 Last Admin: 10/09/19 03:33 Dose: 30 mg Methylergonovine Maleate (Methergine) 0.2 mg IM ASDIRECTED PRN PRN Reason: Post Hemorrhage Methylergonovine Maleate (Methergine) 0.2 mg IM ONETIME PRN PRN Reason: Excessive Vaginal Bleeding Misoprostol (Cytotec) 25 mcg VAG Q4H PRN PRN Reason: Cervical Ripening Misoprostol (Cytotec) 200 mcg PO ONETIME PRN PRN Reason: Post Hemorrhage Misoprostol (Cytotec) 1,000 mcg RECTAL ONETIME PRN PRN Reason: excessive bleeding Nalbuphine HCl (Nubain) 5 mg IVPUSH ASDIRECTED PRN PRN Reason: Itching Naloxone HCl (Narcan) 0.1 mg IVPUSH ONETIME PRN PRN Reason: Respiratory Depression Stop: 10/09/19 20:29 Ondansetron HCl (Zofran) 4 mg IVPUSH Q4H PRN PRN Reason: Nausea/Vomiting Ondansetron HCl (Zofran) 4 mg IVPUSH Q6H PRN PRN Reason: Nausea Ondansetron HCl (Zofran) 4 mg IVPUSH Q4H PRN PRN Reason: Nausea/Vomiting Oxycodone/Acetaminophen (Percocet 325-5 Mg) 2 tab PO Q6H PRN PRN Reason: Pain (moderate 4-6) Oxycodone/Acetaminophen (Percocet 325-5 Mg) 1 tab PO Q4H PRN PRN Reason: Pain (moderate 4-6) Oxycodone/Acetaminophen (Percocet 325-5 Mg) 2 tab PO Q4H PRN PRN Reason: Pain (moderate 4-6) Oxytocin (Pitocin) 10 unit IM ASDIRECTED PRN PRN Reason: Excessive Vaginal Bleeding Sodium Chloride (Saline Flush) 10 ml FLUSH ASDIRECTED PRN PRN Reason: Keep Vein Open Sodium Chloride (Saline Flush) 2.5 ml FLUSH ASDIRECTED PRN PRN Reason: Keep Vein Open Sodium Chloride (Normal Saline) 10 ml IV ASDIRECTED PRN PRN Reason: IV Use Sodium Chloride (Normal Saline) 10 ml IV ASDIRECTED PRN PRN Reason: IV Use Sterile Water (Sterile Water For Irrigation) 1,000 ml IRR ASDIRECTED PRN PRN Reason: delivery Terbutaline Sulfate (Brethine) 0.25 mg SUBCUT ASDIRECTED PRN PRN Reason: Tacysystole Discontinued Medications Cefazolin Sodium/Dextrose (Ancef) Confirm Administered Dose 2 gm IV .STK-MED ONE Stop: 10/08/19 18:11 Citric Acid/Sodium Citrate (Bicitra Solution) 30 ml PO ONETIME ONE Stop: 10/08/19 18:16 Fentanyl (Sublimaze) Confirm Administered Dose 250 mcg .ROUTE .STK-MED ONE Stop: 10/08/19 18:56 Lidocaine HCl (Xylocaine 1%) 50 ml INJECT ONETIME PRN PRN Reason: Laceration repair Methylergonovine Maleate (Methergine) Confirm Administered Dose 0.2 mg .ROUTE .STK-MED ONE Stop: 10/08/19 19:24 Misoprostol (Cytotec) 25 mcg VAG ONETIME PRN PRN Reason: Cervical Ripening Last Admin: 10/08/19 07:23 Dose: 25 mcg Misoprostol (Cytotec) 25 mcg PO ONETIME PRN PRN Reason: Cervical Ripening Last Admin: 10/08/19 08:48 Dose: 25 mcg Misoprostol (Cytotec) 25 mcg PO Q4H PRN PRN Reason: Cervical Ripening Morphine Sulfate (Morphine) 4 mg IVPUSH ONETIME ONE Stop: 10/08/19 16:36 Last Admin: 10/08/19 16:49 Dose: 4 mg Morphine Sulfate (Duramorph Pf) Confirm Administered Dose 10 mg .ROUTE .STK-MED ONE Stop: 10/08/19 18:10 Nalbuphine HCl (Nubain) 10 mg IVPUSH Q1H PRN PRN Reason: Pain (severe 7-10) Last Admin: 10/08/19 20:31 Dose: 10 mg Octyl Cyanoacrylate (Dermabond Advance) Confirm Administered Dose 1 applic .ROUTE .STK-MED ONE Stop: 10/08/19 18:15 Oxytocin (Pitocin) Confirm Administered Dose 10 unit .ROUTE .STK-MED ONE Stop: 10/08/19 18:10 Propofol (Diprivan 20 Ml) Confirm Administered Dose 200 mg .ROUTE .STK-MED ONE Stop: 10/08/19 18:55 - Infant Interaction Support Person: - Recovery Exam Fundal Tone: Firm Fundal Level: 1 Fingerbreadths Below Umbilicus Fundal Placement: Midline Lochia Amount: Small Lochia Color: Rubra/Red Perineum Description: Intact, Minimal Bruising/Swelling Episiotomy/Laceration: None Bladder Status: Indwelling Catheter in Place Urinary Elimination: Indwelling Catheter - Exam General: Alert HEENT: Pupils Equal Lungs: Clear to Auscultation Cardiovascular: Regular Rate, Regular Rhythm GI/Abdominal Exam: Normal Bowel Sounds Extremities: Normal Inspection Wound/Incisions: Dressing Dry and Intact Neurological: No New Focal Deficit Psy/Mental Status: Alert - Problem List & Annotations (1) delivery delivered SNOMED Code(s): 755839936 Code(s): O82 - ENCOUNTER FOR DELIVERY WITHOUT INDICATION Status: Acute Current Visit: Yes (2) Acute blood loss anemia SNOMED Code(s): 022097034 Code(s): D62 - ACUTE POSTHEMORRHAGIC ANEMIA Status: Acute Current Visit: Yes - Problem List Review Problem List Initiated/Reviewed/Updated: Yes - My Orders Last 24 Hours: My Active Orders 10/08/19 08:50 Notify Provider Vital Signs [RC] ASDIRECTED 10/08/19 17:55 Notify Provider Vital Signs [RC] PRN Verify Patient Consent Obtain [RC] ASDIRECTED 10/08/19 18:15 Lactated Ringers [Ringers, Lactated] 1,000 ml IV BOLUS Oxytocin/0.9 % Sodium Chloride [Oxytocin 30 Unit/500 ML-NS] 30 unit in 500 ml IV TITRATE Sodium Chloride 0.9% [Normal Saline] 10 ml IV ASDIRECTED PRN 10/08/19 18:16 Patient Status [ADT] Routine Up ad Birdie [RC] ASDIRECTED Vital Signs [RC] PER UNIT ROUTINE Peripheral IV Insertion Adult [OM.PC] Routine Schedule Procedure [COMM] Per Unit Routine 10/08/19 20:46 Patient Status [ADT] Routine Ambulate [RC] PER UNIT ROUTINE Communication Order [RC] PER UNIT ROUTINE Communication Order [RC] PER UNIT ROUTINE Communication Order [RC] Per Unit Routine May Shower [RC] ASDIRECTED Notify Provider Intake and Out [RC] ASDIRECTED RT Incentive Spirometry [RC] Q2HWA Acetaminophen/oxyCODONE [Percocet 325-5 MG] 1 tab PO Q4H PRN Acetaminophen/oxyCODONE [Percocet 325-5 MG] 2 tab PO Q4H PRN Ibuprofen [Motrin] 800 mg PO Q8H PRN Lanolin [Lansinoh HPA] See Dose Instructions TOP ASDIRECTED PRN Methylergonovine [Methergine] 0.2 mg IM ONETIME PRN Ondansetron [Zofran] 4 mg IVPUSH Q4H PRN Oxytocin [Pitocin] 10 unit IM ASDIRECTED PRN Tranexamic Acid [Cyklokapron] 1,000 mg Sodium Chloride 0.9% [Normal Saline] 100 ml IV ONETIME bisacodyL [Dulcolax] 10 mg RECTAL ONETIME PRN diphenhydrAMINE [Benadryl] 25 mg IVPUSH Q6H PRN miSOPROStoL [Cytotec] 1,000 mcg RECTAL ONETIME PRN Assess Lochia [WOMSER] Per Unit Routine Assess Uterine Involution [WOMSER] Per Unit Routine Breast Pump [WOMSER] Per Unit Routine Peripheral IV Discontinue [OM.PC] Routine Sequential Compression Device [OM.PC] Per Unit Routine Resuscitation Status Routine 10/08/19 20:47 Antiembolic Devices [RC] PER UNIT ROUTINE 10/08/19 21:00 Docusate Sodium [Colace] 100 mg PO BID Ketorolac [Toradol] 30 mg IVPUSH Q6H Lactated Ringers [Ringers, Lactated] 1,000 ml IV ASDIRECTED Oxytocin/Lactated Ringers [Pitocin in LR 30 Units/500 ML] 30 unit in 500 ml IV TITRATE - Assessment Assessment:: 39yo P1 s/p Primary LTCS POD1 , Post op anemia - asymptomatic Normal lochia - Plan Plan:: \ Pain control as needed Recommend Blood transfusion if patient is symptomatic Remove montes and follow void Continue Venodynes Incentive spirometry
[2019-10-09] MEDS: Docusate Sodium 100 MG Cap PO SCH ×3 (09:29→22:10)
--- NOTE | 2019-10-09 09:53 | PCM48HPAN ---
Post Anesthesia Note - EVALUATION WITHIN 48HRS OF ANESTHETIC Vital Signs in Normal Range: Yes Patient Participated in Evaluation: Yes Respiratory Function Stable: Yes Airway Patent: Yes Cardiovascular Function Stable: Yes Hydration Status Stable: Yes Pain Control Satisfactory: Yes Nausea and Vomiting Control Satisfactory: Yes Mental Status Recovered: Yes Vital Signs: Last Vital Signs Temp 98.5 F 10/09/19 05:16 Pulse 80 10/09/19 07:34 Resp 18 10/09/19 07:34 BP 106/59 L 10/09/19 04:47 Pulse Ox 99 10/09/19 07:34 - COMMENTS/OBSERVATIONS Free Text/Narrative:: reported some itching, but has resolved with nubain. Pt. reports some pain but the pain is tolerable.
--- NOTE | 2019-10-09 12:04 | OR ---
SURGEON: JESUS MANUEL CASTANON DATE OF PROCEDURE: 10/08/2019 PREOPERATIVE DIAGNOSIS: A 39-year-old, G1, P0, at 39 weeks and 4 days with a category 2 heart tracing remote from delivery. POSTOPERATIVE DIAGNOSIS: A 39-year-old, G1, P0, at 39 weeks and 4 days with a category 2 heart tracing remote from delivery. PROCEDURE: Primary lower transverse section. ESTIMATED BLOOD LOSS: 800. IV FLUID: 3000. URINE OUTPUT: 200. ANESTHESIA: Spinal. NOTES AND FINDING: A live female delivered at 7:12 p.m. score was 8 and 8. Weight is 2740 g. BRIEF HISTORY: She is 39, G1, P0, at 39 weeks and 4 days. The patient receiving care with Ngoc Dixon. She was scheduled for induction of labor as an elective. The patient received one dose of Cytotec orally and one vaginally . The cervix was closed, long, posterior. The patient was noted to have recurrent late deceleration despite resuscitative measures. The patient received a bolus, left lateral positioning. Oxygen but was not improving. As a result, she was consented for a primary for a category 2 heart tracing remote from delivery. The patient was explained the risks, benefits, and alternatives, and she decided to proceed. She was given the opportunity to ask questions and all her questions were answered. DESCRIPTION OF PROCEDURE: The patient was taken to the operating room where spinal anesthesia was performed without difficulty. She was prepared and draped in the dorsal supine position with a leftward tilt. A Pfannenstiel skin incision was made with a scalpel and carried down to the fascia with the Bovie. The fascia was incised and extended upwards and laterally. The fascia was from the rectus muscles superiorly and inferiorly. The rectus muscle was in the midline down to the level of the pubic symphysis. The peritoneum was entered in bluntly. The Nakul retractor was placed to expose the lower uterine segment. The bladder flap was created with the Metzenbaum scissors. A lower uterine incision was made, which was extended upward and downward. The fetus was found to be in cephalic position and was brought to the level of the incision. With fundal pressure, the infant was delivered. The cord was clamped and cut. was handed over to the awaiting civil engineering project designer. The placenta was then delivered with manual massage of the uterine fundus. The uterine cavity was then cleaned with moist laparotomy sponges. The hysterotomy incision was closed with 0 Vicryl in an interlocking fashion and then a second layer was done with imbricating 0 Monocryl. The peritoneum was closed with 2-0 Vicryl. After the Nakul retractor was removed, the fascia was closed with 0 Vicryl. The subcutaneous fat was closed with 2-0 plain gut and the skin was closed with 3-0 Monocryl on a Peter needle. All instrument and pad counts were correct x2. The patient tolerated the procedure well and was taken to Labor and Delivery room in stable condition. JOSESITO TORRES /[id number] MTDD
--- NOTE | 2019-10-09 17:53 | PCM.SN ---
- Free Text/Narrative Note: Called to evaluate pt. for possible spinal headache. Pt. is not quite 24hours post-op after a . The pt. had a spinal for this. The patient reports that the headache is worse when she stands up and is better when laying down. The patient reported a history of migraines. This may be a spinal headache based off of her symptoms that is present when standing but gone when she is laying flat, but could also be other factors related to her history of migraines. A spinal headache was explained to the patient. The patient was given the different options if it is a spinal headache. The patient was encouraged to drink plenty of fluids at least 3 L in a day and to have a caffeine intake of 300mg in a day, NSAIDs and other pain meds. Another treatment of a sphenopalatine ganglion block could be completed to reduce the symptoms of the headache. A blood patch was also discussed with the patient. The patient wanted to try the more conservative measures first of pain meds, lots of fluids and caffeine. The patient was encouraged to have anesthesia notified if the conservative measures are ineffective and the headache worsens. The other treatment options of a sphenopalatine ganglion block and blood patch could be pursued at that time.
[2019-10-09] MEDS: Ibuprofen 800 MG Tab PO PRN (23:01)
[2019-10-10] MEDS: Acetaminophen/oxyCODONE 325-5 MG Tab PO PRN ×4 (02:39→19:51)
--- NOTE | 2019-10-10 08:29 | PCM48HPAN ---
Post Anesthesia Note - EVALUATION WITHIN 48HRS OF ANESTHETIC Vital Signs in Normal Range: Yes Patient Participated in Evaluation: Yes Respiratory Function Stable: Yes Airway Patent: Yes Cardiovascular Function Stable: Yes Hydration Status Stable: Yes Pain Control Satisfactory: Yes Nausea and Vomiting Control Satisfactory: Yes Mental Status Recovered: Yes Vital Signs: Last Vital Signs Temp 36.6 C 10/10/19 08:13 Pulse 77 10/10/19 08:13 Resp 18 10/10/19 08:13 BP 119/78 10/10/19 08:13 Pulse Ox 100 10/10/19 08:13 - COMMENTS/OBSERVATIONS Free Text/Narrative:: Patient reports continues to report symptoms of post dural puncture headache. She is undecided regarding receivind an epidural blood patch at this time. Eliazar Velasquez [employer]
[2019-10-10] MEDS: Ibuprofen 800 MG Tab PO PRN ×2 (08:47→17:16)
[2019-10-10] MEDS: Docusate Sodium 100 MG Cap PO SCH ×2 (08:47→19:51)
--- NOTE | 2019-10-10 11:51 | PCM.PNPP ---
- General Info Date of Service: 10/10/19 Functional Status: Reports: Pain Controlled, Tolerating Diet, Ambulating, Urinating - Review of Systems General: Reports: Fatigue. Denies: Fever, Weakness Pulmonary: Denies: Shortness of Breath Cardiovascular: Denies: Chest Pain, Palpitations, Lightheadedness Gastrointestinal: Reports: Abdominal Pain (trace). Denies: Nausea, Vomiting Genitourinary: Denies: Flank Pain Musculoskeletal: Reports: No Symptoms Skin: Reports: No Symptoms Neurological: Reports: No Symptoms Psychiatric: Reports: No Symptoms - General Info Date of Service: 10/10/19 - Patient Data Vital Signs - Most Recent: Last Vital Signs Temp 36.6 C 10/10/19 08:13 Pulse 77 10/10/19 08:13 Resp 18 10/10/19 08:13 BP 119/78 10/10/19 08:13 Pulse Ox 100 10/10/19 08:13 Weight - Most Recent: 95 kg I&O - Last 24 Hours: Intake & Output 10/09/19 10/10/19 10/10/19 22:59 06:59 14:59 Output Total 200 Balance -200 Lab Results - Last 24 Hours: Laboratory Results - last 24 hr 10/08/19 Range/Units 06:15 RPR Non Reactive (NonRea<1:1) Med Orders - Current: Current Medications Bisacodyl (Dulcolax) 10 mg RECTAL ONETIME PRN PRN Reason: Constipation Butorphanol Tartrate (Stadol) 1 mg IVPUSH Q1H PRN PRN Reason: Pain Carboprost Tromethamine (Hemabate Ds) 250 mcg IM ASDIRECTED PRN PRN Reason: Post Hemorrhage Diphenhydramine HCl (Benadryl) 25 mg IVPUSH Q6H PRN PRN Reason: Itching or Nausea Last Admin: 10/09/19 09:05 Dose: 25 mg Docusate Sodium (Colace) 100 mg PO BID [facility] Last Admin: 10/10/19 08:47 Dose: 100 mg Emollient Ointment (Lansinoh Hpa) 0 gm TOP ASDIRECTED PRN PRN Reason: Sore Nipples Fentanyl (Sublimaze) 50 mcg IVPUSH Q1H PRN PRN Reason: Pain (severe 7-10) Lactated Ringer's (Ringers, Lactated) 1,000 mls @ 150 mls/hr IV ASDIRECTED [facility] Last Infusion: 10/08/19 14:00 Dose: Infused Oxytocin/Sodium Chloride (Oxytocin 30 Unit/500 Ml-Ns) 30 unit in 500 mls @ 2 mls/hr IV TITRATE [facility]; Protocol Oxytocin/Sodium Chloride (Oxytocin 30 Unit/500 Ml-Ns) 30 unit in 500 mls @ 555 mls/hr IV TITRATE [facility] Tranexamic Acid 1,000 mg/ (Sodium Chloride) 110 mls @ 660 mls/hr IV ONETIME PRN PRN Reason: Bleeding Oxytocin/Sodium Chloride (Oxytocin 30 Unit/500 Ml-Ns) 30 unit in 500 mls @ 250 mls/hr IV TITRATE [facility] Lactated Ringer's (Ringers, Lactated) 1,000 mls @ 500 mls/hr IV BOLUS [facility] Tranexamic Acid 1,000 mg/ (Sodium Chloride) 110 mls @ 660 mls/hr IV ONETIME PRN PRN Reason: Bleeding Lactated Ringer's (Ringers, Lactated) 1,000 mls @ 125 mls/hr IV ASDIRECTED [facility] Last Admin: 10/08/19 23:54 Dose: 125 mls/hr Oxytocin/Lactated Ringer's (Pitocin In Lr 30 Units/500 Ml) 30 unit in 500 mls @ 125 mls/hr IV TITRATE [facility]; Protocol Ibuprofen (Motrin) 800 mg PO Q8H PRN PRN Reason: mild pain or fever Last Admin: 10/10/19 08:47 Dose: 800 mg Methylergonovine Maleate (Methergine) 0.2 mg IM ASDIRECTED PRN PRN Reason: Post Hemorrhage Methylergonovine Maleate (Methergine) 0.2 mg IM ONETIME PRN PRN Reason: Excessive Vaginal Bleeding Misoprostol (Cytotec) 25 mcg VAG Q4H PRN PRN Reason: Cervical Ripening Misoprostol (Cytotec) 200 mcg PO ONETIME PRN PRN Reason: Post Hemorrhage Misoprostol (Cytotec) 1,000 mcg RECTAL ONETIME PRN PRN Reason: excessive bleeding Nalbuphine HCl (Nubain) 5 mg IVPUSH ASDIRECTED PRN PRN Reason: Itching Ondansetron HCl (Zofran) 4 mg IVPUSH Q4H PRN PRN Reason: Nausea/Vomiting Ondansetron HCl (Zofran) 4 mg IVPUSH Q6H PRN PRN Reason: Nausea Ondansetron HCl (Zofran) 4 mg IVPUSH Q4H PRN PRN Reason: Nausea/Vomiting Oxycodone/Acetaminophen (Percocet 325-5 Mg) 2 tab PO Q6H PRN PRN Reason: Pain (moderate 4-6) Oxycodone/Acetaminophen (Percocet 325-5 Mg) 1 tab PO Q4H PRN PRN Reason: Pain (moderate 4-6) Last Admin: 10/10/19 08:48 Dose: 1 tab Oxycodone/Acetaminophen (Percocet 325-5 Mg) 2 tab PO Q4H PRN PRN Reason: Pain (moderate 4-6) Last Admin: 10/10/19 02:39 Dose: 2 tab Oxytocin (Pitocin) 10 unit IM ASDIRECTED PRN PRN Reason: Excessive Vaginal Bleeding Sodium Chloride (Saline Flush) 10 ml FLUSH ASDIRECTED PRN PRN Reason: Keep Vein Open Sodium Chloride (Saline Flush) 2.5 ml FLUSH ASDIRECTED PRN PRN Reason: Keep Vein Open Sodium Chloride (Normal Saline) 10 ml IV ASDIRECTED PRN PRN Reason: IV Use Sodium Chloride (Normal Saline) 10 ml IV ASDIRECTED PRN PRN Reason: IV Use Sterile Water (Sterile Water For Irrigation) 1,000 ml IRR ASDIRECTED PRN PRN Reason: delivery Terbutaline Sulfate (Brethine) 0.25 mg SUBCUT ASDIRECTED PRN PRN Reason: Tacysystole Discontinued Medications Cefazolin Sodium/Dextrose (Ancef) Confirm Administered Dose 2 gm IV .STK-MED ONE Stop: 10/08/19 18:11 Citric Acid/Sodium Citrate (Bicitra Solution) 30 ml PO ONETIME ONE Stop: 10/08/19 18:16 Last Admin: 10/09/19 20:39 Dose: Not Given Diphenhydramine HCl (Benadryl) 25 mg IVPUSH Q4H PRN PRN Reason: Itching Stop: 10/09/19 20:29 Last Admin: 10/08/19 23:54 Dose: 25 mg Fentanyl (Sublimaze) Confirm Administered Dose 250 mcg .ROUTE .STK-MED ONE Stop: 10/08/19 18:56 Ketorolac Tromethamine (Toradol) 30 mg IVPUSH Q6H [facility] Stop: 10/09/19 21:01 Last Admin: 10/09/19 22:07 Dose: Not Given Lidocaine HCl (Xylocaine 1%) 50 ml INJECT ONETIME PRN PRN Reason: Laceration repair Methylergonovine Maleate (Methergine) Confirm Administered Dose 0.2 mg .ROUTE .STK-MED ONE Stop: 10/08/19 19:24 Last Admin: 10/09/19 20:39 Dose: Not Given Misoprostol (Cytotec) 25 mcg VAG ONETIME PRN PRN Reason: Cervical Ripening Last Admin: 10/08/19 07:23 Dose: 25 mcg Misoprostol (Cytotec) 25 mcg PO ONETIME PRN PRN Reason: Cervical Ripening Last Admin: 10/08/19 08:48 Dose: 25 mcg Misoprostol (Cytotec) 25 mcg PO Q4H PRN PRN Reason: Cervical Ripening Morphine Sulfate (Morphine) 4 mg IVPUSH ONETIME ONE Stop: 10/08/19 16:36 Last Admin: 10/08/19 16:49 Dose: 4 mg Morphine Sulfate (Duramorph Pf) Confirm Administered Dose 10 mg .ROUTE .STK-MED ONE Stop: 10/08/19 18:10 Nalbuphine HCl (Nubain) 10 mg IVPUSH Q1H PRN PRN Reason: Pain (severe 7-10) Last Admin: 10/08/19 20:31 Dose: 10 mg Naloxone HCl (Narcan) 0.1 mg IVPUSH ONETIME PRN PRN Reason: Respiratory Depression Stop: 10/09/19 20:29 Octyl Cyanoacrylate (Dermabond Advance) Confirm Administered Dose 1 applic .ROUTE .STK-MED ONE Stop: 10/08/19 18:15 Last Admin: 10/09/19 09:28 Dose: Not Given Oxytocin (Pitocin) Confirm Administered Dose 10 unit .ROUTE .STK-MED ONE Stop: 10/08/19 18:10 Propofol (Diprivan 20 Ml) Confirm Administered Dose 200 mg .ROUTE .STK-MED ONE Stop: 10/08/19 18:55 - Interaction Support Person: - Recovery Exam Fundal Tone: Firm Fundal Level: At Umbilicus Fundal Placement: Midline Lochia Amount: None Lochia Color: Rubra/Red Perineum Description: Intact, Minimal Bruising/Swelling Episiotomy/Laceration: None Bladder Status: Voiding Urinary Elimination: Voided - Exam General: Alert, Oriented Lungs: Normal Respiratory Effort Cardiovascular: Regular Rate, Regular Rhythm GI/Abdominal Exam: Normal Bowel Sounds, Soft Extremities: Pedal Edema (trace). No: Susi's Sign Skin: Warm, Dry, Intact Wound/Incisions: No Drainage. No: Erythema Neurological: No New Focal Deficit Psy/Mental Status: Alert, Normal Affect, Normal Mood - Problem List & Annotations (1) delivery delivered SNOMED Code(s): 585401022 Code(s): O82 - ENCOUNTER FOR DELIVERY WITHOUT INDICATION Status: Acute Current Visit: Yes - Problem List Review Problem List Initiated/Reviewed/Updated: Yes - Assessment Assessment:: 39yo P1 s/p Primary LTCS POD2 , Post op anemia - asymptomatic - Plan Plan:: Doing well overall and remains asymptomatic from anemia. Continue postoperative cares--ambulate halls today. Anticipate discharge tomorrow.
[2019-10-11] MEDS: Acetaminophen/oxyCODONE 325-5 MG Tab PO PRN ×3 (00:28→12:13)
[2019-10-11] MEDS: Docusate Sodium 100 MG Cap PO SCH ×2 (07:42→09:21)
[2019-10-11] MEDS: Ibuprofen 800 MG Tab PO PRN (09:21)
--- NOTE | 2019-10-11 11:32 | PCM.PNPP ---
- General Info Date of Service: 10/11/19 Functional Status: Reports: Pain Controlled, Tolerating Diet, Ambulating, Urinating - Review of Systems General: Denies: Fever, Weakness, Fatigue Pulmonary: Denies: Shortness of Breath Cardiovascular: Denies: Chest Pain, Palpitations, Lightheadedness Gastrointestinal: Denies: Abdominal Pain, Nausea, Vomiting Genitourinary: Denies: Flank Pain Musculoskeletal: Reports: No Symptoms Skin: Reports: No Symptoms Neurological: Reports: No Symptoms - General Info Date of Service: 10/11/19 - Patient Data Vital Signs - Most Recent: Last Vital Signs Temp 36.7 C 10/11/19 08:19 Pulse 90 10/11/19 08:19 Resp 18 10/11/19 08:19 BP 127/59 L 10/11/19 08:19 Pulse Ox 99 10/11/19 08:19 Weight - Most Recent: 95 kg Med Orders - Current: Current Medications Bisacodyl (Dulcolax) 10 mg RECTAL ONETIME PRN PRN Reason: Constipation Butorphanol Tartrate (Stadol) 1 mg IVPUSH Q1H PRN PRN Reason: Pain Carboprost Tromethamine (Hemabate Ds) 250 mcg IM ASDIRECTED PRN PRN Reason: Post Hemorrhage Diphenhydramine HCl (Benadryl) 25 mg IVPUSH Q6H PRN PRN Reason: Itching or Nausea Last Admin: 10/09/19 09:05 Dose: 25 mg Docusate Sodium (Colace) 100 mg PO BID MAGGIE Last Admin: 10/11/19 09:21 Dose: 100 mg Emollient Ointment (Lansinoh Hpa) 0 gm TOP ASDIRECTED PRN PRN Reason: Sore Nipples Fentanyl (Sublimaze) 50 mcg IVPUSH Q1H PRN PRN Reason: Pain (severe 7-10) Lactated Ringer's (Ringers, Lactated) 1,000 mls @ 150 mls/hr IV ASDIRECTED MAGGIE Last Infusion: 10/08/19 14:00 Dose: Infused Oxytocin/Sodium Chloride (Oxytocin 30 Unit/500 Ml-Ns) 30 unit in 500 mls @ 2 mls/hr IV TITRATE MAGGIE; Protocol Oxytocin/Sodium Chloride (Oxytocin 30 Unit/500 Ml-Ns) 30 unit in 500 mls @ 555 mls/hr IV TITRATE MAGGIE Tranexamic Acid 1,000 mg/ (Sodium Chloride) 110 mls @ 660 mls/hr IV ONETIME PRN PRN Reason: Bleeding Oxytocin/Sodium Chloride (Oxytocin 30 Unit/500 Ml-Ns) 30 unit in 500 mls @ 250 mls/hr IV TITRATE MAGGIE Lactated Ringer's (Ringers, Lactated) 1,000 mls @ 500 mls/hr IV BOLUS MAGGIE Tranexamic Acid 1,000 mg/ (Sodium Chloride) 110 mls @ 660 mls/hr IV ONETIME PRN PRN Reason: Bleeding Lactated Ringer's (Ringers, Lactated) 1,000 mls @ 125 mls/hr IV ASDIRECTED MAGGIE Last Admin: 10/08/19 23:54 Dose: 125 mls/hr Oxytocin/Lactated Ringer's (Pitocin In Lr 30 Units/500 Ml) 30 unit in 500 mls @ 125 mls/hr IV TITRATE [facility]; Protocol Ibuprofen (Motrin) 800 mg PO Q8H PRN PRN Reason: mild pain or fever Last Admin: 10/11/19 09:21 Dose: 800 mg Methylergonovine Maleate (Methergine) 0.2 mg IM ASDIRECTED PRN PRN Reason: Post Hemorrhage Methylergonovine Maleate (Methergine) 0.2 mg IM ONETIME PRN PRN Reason: Excessive Vaginal Bleeding Misoprostol (Cytotec) 25 mcg VAG Q4H PRN PRN Reason: Cervical Ripening Misoprostol (Cytotec) 200 mcg PO ONETIME PRN PRN Reason: Post Hemorrhage Misoprostol (Cytotec) 1,000 mcg RECTAL ONETIME PRN PRN Reason: excessive bleeding Nalbuphine HCl (Nubain) 5 mg IVPUSH ASDIRECTED PRN PRN Reason: Itching Ondansetron HCl (Zofran) 4 mg IVPUSH Q4H PRN PRN Reason: Nausea/Vomiting Ondansetron HCl (Zofran) 4 mg IVPUSH Q6H PRN PRN Reason: Nausea Ondansetron HCl (Zofran) 4 mg IVPUSH Q4H PRN PRN Reason: Nausea/Vomiting Oxycodone/Acetaminophen (Percocet 325-5 Mg) 2 tab PO Q6H PRN PRN Reason: Pain (moderate 4-6) Oxycodone/Acetaminophen (Percocet 325-5 Mg) 1 tab PO Q4H PRN PRN Reason: Pain (moderate 4-6) Last Admin: 10/10/19 19:51 Dose: 1 tab Oxycodone/Acetaminophen (Percocet 325-5 Mg) 2 tab PO Q4H PRN PRN Reason: Pain (moderate 4-6) Last Admin: 10/11/19 06:51 Dose: 2 tab Oxytocin (Pitocin) 10 unit IM ASDIRECTED PRN PRN Reason: Excessive Vaginal Bleeding Sodium Chloride (Saline Flush) 10 ml FLUSH ASDIRECTED PRN PRN Reason: Keep Vein Open Sodium Chloride (Saline Flush) 2.5 ml FLUSH ASDIRECTED PRN PRN Reason: Keep Vein Open Sodium Chloride (Normal Saline) 10 ml IV ASDIRECTED PRN PRN Reason: IV Use Sodium Chloride (Normal Saline) 10 ml IV ASDIRECTED PRN PRN Reason: IV Use Sterile Water (Sterile Water For Irrigation) 1,000 ml IRR ASDIRECTED PRN PRN Reason: delivery Terbutaline Sulfate (Brethine) 0.25 mg SUBCUT ASDIRECTED PRN PRN Reason: Tacysystole Discontinued Medications Cefazolin Sodium/Dextrose (Ancef) Confirm Administered Dose 2 gm IV .STK-MED ONE Stop: 10/08/19 18:11 Citric Acid/Sodium Citrate (Bicitra Solution) 30 ml PO ONETIME ONE Stop: 10/08/19 18:16 Last Admin: 10/09/19 20:39 Dose: Not Given Diphenhydramine HCl (Benadryl) 25 mg IVPUSH Q4H PRN PRN Reason: Itching Stop: 10/09/19 20:29 Last Admin: 10/08/19 23:54 Dose: 25 mg Fentanyl (Sublimaze) Confirm Administered Dose 250 mcg .ROUTE .STK-MED ONE Stop: 10/08/19 18:56 Ketorolac Tromethamine (Toradol) 30 mg IVPUSH Q6H MAGGIE Stop: 10/09/19 21:01 Last Admin: 10/09/19 22:07 Dose: Not Given Lidocaine HCl (Xylocaine 1%) 50 ml INJECT ONETIME PRN PRN Reason: Laceration repair Methylergonovine Maleate (Methergine) Confirm Administered Dose 0.2 mg .ROUTE .STK-MED ONE Stop: 10/08/19 19:24 Last Admin: 10/09/19 20:39 Dose: Not Given Misoprostol (Cytotec) 25 mcg VAG ONETIME PRN PRN Reason: Cervical Ripening Last Admin: 10/08/19 07:23 Dose: 25 mcg Misoprostol (Cytotec) 25 mcg PO ONETIME PRN PRN Reason: Cervical Ripening Last Admin: 10/08/19 08:48 Dose: 25 mcg Misoprostol (Cytotec) 25 mcg PO Q4H PRN PRN Reason: Cervical Ripening Morphine Sulfate (Morphine) 4 mg IVPUSH ONETIME ONE Stop: 10/08/19 16:36 Last Admin: 10/08/19 16:49 Dose: 4 mg Morphine Sulfate (Duramorph Pf) Confirm Administered Dose 10 mg .ROUTE .STK-MED ONE Stop: 10/08/19 18:10 Nalbuphine HCl (Nubain) 10 mg IVPUSH Q1H PRN PRN Reason: Pain (severe 7-10) Last Admin: 10/08/19 20:31 Dose: 10 mg Naloxone HCl (Narcan) 0.1 mg IVPUSH ONETIME PRN PRN Reason: Respiratory Depression Stop: 10/09/19 20:29 Octyl Cyanoacrylate (Dermabond Advance) Confirm Administered Dose 1 applic .ROUTE .STK-MED ONE Stop: 10/08/19 18:15 Last Admin: 10/09/19 09:28 Dose: Not Given Oxytocin (Pitocin) Confirm Administered Dose 10 unit .ROUTE .STK-MED ONE Stop: 10/08/19 18:10 Propofol (Diprivan 20 Ml) Confirm Administered Dose 200 mg .ROUTE .STK-MED ONE Stop: 10/08/19 18:55 - Interaction Support Person: - Recovery Exam Fundal Tone: Firm Fundal Level: 1 Fingerbreadths Below Umbilicus Fundal Placement: Midline Lochia Amount: Scant Lochia Color: Rubra/Red Perineum Description: Intact, Minimal Bruising/Swelling Episiotomy/Laceration: None Bladder Status: Voiding Urinary Elimination: Voided - Exam General: Alert, Oriented Lungs: Normal Respiratory Effort Cardiovascular: Regular Rate, Regular Rhythm GI/Abdominal Exam: Normal Bowel Sounds, Soft, No Distention Extremities: Pedal Edema (trace). No: Susi's Sign Skin: Warm, Dry, Intact Wound/Incisions: Healing Well, No Drainage. No: Erythema Neurological: No New Focal Deficit Psy/Mental Status: Alert, Normal Affect, Normal Mood - Problem List & Annotations (1) delivery delivered SNOMED Code(s): 808182041 Code(s): O82 - ENCOUNTER FOR DELIVERY WITHOUT INDICATION Status: Acute Current Visit: Yes - Problem List Review Problem List Initiated/Reviewed/Updated: Yes - My Orders Last 24 Hours: My Active Orders 10/11/19 11:29 Ready for Discharge [RC] PER UNIT ROUTINE - Assessment Assessment:: 39yo P1 s/p Primary LTCS POD3 , Post op anemia - asymptomatic - Plan Plan:: Patient had a good day yesterday, still remains asymptomatic from anemia. VS are stable. Discharge to home today. Follow up at [facility] clinic in 1-2 weeks and 6 weeks. Discharge instructions reviewed Rx for iron, colace, motrin and percocet provided.
[2019-10-11 12:44] VITALS: BP 111/72; PULSE 72
== END 2019-10-11 15:50 | disposition home or self-care (01) | DRG 787 ==
LOC: MW.OBCHECK 05:31 → MW.OB 05:32 → MW.OBCHECK 05:40 → OBSVTOIN 19:12 → MW.OB 10-09 00:28
PROVIDERS: ADMIT Obstetrics & Gynecology; ATTEND Obstetrics & Gynecology
PROC: 10D00Z1 Extraction of Products of Conception, Low, Open Approach (ICD-10-PCS; principal; 2019-10-08)
DX: O99.02 Anemia complicating childbirth (principal); D62 Acute posthemorrhagic anemia; Z37.0 Single live birth; O76 Abnormality in fetal heart rate and rhythm complicating labor and delivery; O74.5 Spinal and epidural anesthesia-induced headache during labor and delivery; Z3A.39 39 weeks gestation of pregnancy
CPT/HCPCS: 36415; 59025; 85014; 85018; 85027; 86593; 86850; 86900; 86901; 86920; 86921; 86922; A9270-GY; J0690; J1200; J1885; J2210; J2270; J2300; J2590; J2704; J3010; J7120